=== PATIENT | female | born 1965 | race Caucasian/White ===

== ENCOUNTER 2023-08-13 07:54 | Emergency (ER) | payer OTHER, SELFPAY ==
[2023-08-13 08:05] VITALS: BP 121/87; PULSE 106; RESP 15; O2SAT 100
[2023-08-13 08:12] VITALS: BP 134/80; PULSE 101; RESP 16; TEMP 36.3; O2SAT 99
[2023-08-13 08:16] VITALS: BP 128/91; PULSE 109; RESP 18; O2SAT 96
[2023-08-13] MEDS: SODIUM CHLORIDE 0.9% IV 1,000 ML 999 ML IV CONT (08:26)
[2023-08-13 08:33] LABS: Basophils Absolute Auto 0.1 K/mm3 (0.0-0.1); Basophils Percent Auto 0.4 % (0.2-1.2); Eosinophils Absolute Auto 0.1 K/mm3 (0-0.3); Eosinophils Percent Auto 0.8 % (0-4.4); Hematocrit 48.9 % (37.0-47.0); Hemoglobin 16.6 g/dL (12.0-15.0); Immature Granulocyte Absolute 0.18 K/mm3 (0.00-0.031); Immature Granulocyte Percent A 1.3 % (0-0.5); Lymphocytes Absolute Auto 2.56 K/mm3 (0.9-3.2); Lymphocytes Percent Auto 18.7 % (18.3-44.2); Mean Corpuscular HGB Conc 33.9 g/dl (32-36); Mean Corpuscular Hemoglobin 30.3 pg (26-34); Mean Corpuscular Volume 89.2 fl (80-100); Mean Platelet Volume 9.2 fl (7.4-10.4); Monocytes Absolute Auto 0.7 K/mm3 (0.1-0.6); Monocytes Percent Auto 5.3 % (2.6-8.5); Neutrophils Percent Auto 73.5 % (45.5-73.1); Platelet Count Result 465 k/mm3 (150-375); Red Blood Count 5.48 M/mm3 (4.2-5.4); White Blood Count 13.7 K/mm3 (4.5-10.0)
[2023-08-13 08:46] LABS: Alanine Aminotransferase 35 U/L (6-35); Albumin Level 4.9 g/dL (3.5-5.1); Alkaline Phosphatase 82 U/L (38-126); Anion Gap 16 mmol/L (4-12); Aspartate Amino Transferase 30 U/L (14-36); Bilirubin,Total 1.8 mg/dL (0.2-1.3); Blood Urea Nitrogen 36 mg/dL (7-17); Calcium 9.4 mg/dL (8.4-10.2); Carbon Dioxide 18 mmol/L (22-30); Chloride 101 mmol/L (98-107); Estimated Glomerular Filt Rate > 60; Glucose 67 mg/dL (65-110); Sodium 135 mmol/L (137-145)
[2023-08-13 09:01] VITALS: BP 121/78; PULSE 93; RESP 14; TEMP 36.6; O2SAT 100
[2023-08-13 10:11] LABS: Add Urine Microscopic? NO; Appearance Urine Clear (Clear); Bilirubin Urine Negative (Negative); Blood Urine Negative (Negative); Color Urine Yellow (Yellow); Glucose Urine UA Negative (Negative); Ketones Urine 3+ mg/dL (Negative); Leukocyte Esterase Ur Negative LEU/UL (Negative); Nitrate Urine Negative (Negative); Protein Urine Negative (Negative); Urobilinogen Urine 0.2 mg/dL (<2.0)
[2023-08-13 10:30] VITALS: BP 124/68; PULSE 92; RESP 20; TEMP 36.8; O2SAT 99
--- NOTE | 2023-08-13 10:48 | ED.WEAKNESS ---
HPI - Weakness General Chief complaint: Weakness Stated complaint: SOB, i can't talk , difficulty walking Time Seen by Provider: 08/13/23 08:06 Source: patient Mode of arrival: ambulatory Limitations: no limitations History of Present Illness HPI Narrative: 58-year-old with a history of anxiety, depression ongoing neurological problem here with the complaints of generalized weakness, unable to eat unable to swallow which has been ongoing for almost 6 months to a year. She states that she had an MRI of her brain and neck and is scheduled to see a neurologist on August 29. She presently denies having any headache, chest pain or shortness of breath. No history of nausea or vomiting. MD Complaint: generalized weakness Onset (ago): month(s) (6) Duration: constant Location: generalized Migration: none Relieving factors: none Exacerbating factors: none Context: new medication Associated symptoms: denies other symptoms Related Data Allergies Allergy/AdvReac Type Severity Reaction Status Date / Time hydromorphone AdvReac Intermediate SEVERE Verified 05/25/18 12:03 VOMITING Review of Systems Review of Systems: All systems reviewed & are unremarkable except as noted in HPI and below Constitutional: Constitutional: Reports no additional constitutional complaints Eyes: Eyes: Reports no additional eye complaints ENT: Reports system reviewed and no additional complaints, except as documented Cardiovascular: Cardiovascular: Reports no additional cardiovascular complaints Respiratory: Respiratory: Reports no additional respiratory complaints Gastrointestinal: Gastrointestinal: Reports no additional gastrointestinal complaints Genitourinary: Genitourinary: Reports no additional female genitourinary complaints Musculoskeletal: Musculoskeletal: Reports as per HPI Neurologic: Reports as per HPI PMFSH Family History Family History Other Asthma Carcinoma of colon Social History Social History Smoking status: Never smoker Alcohol intake: never Exam Narrative: GENERAL: Well-appearing, well-nourished, and in no acute distress. HEAD: Normocephalic, atraumatic. EYES: PERRLA and EOMI. ENT: Nares clear, no rhinorrhea or epistaxis. Mucous membranes moist. NECK: Supple. CHEST: Clear to auscultation. No respiratory distress. HEART: Regular rate and rhythm. No murmur heard. Normal peripheral pulses. ABDOMEN: Soft, nontender, nondistended, normal active bowel sounds. EXTREMITIES: Normal range of motion. No edema. SKIN: Warm, dry, no rash. NEURO: No focal deficits. Alert and oriented x3. PSYCH: Normal mood and affect. Course Course Emergency Course: Notified patient about her lab work. Recommended her to follow with a neurologist as scheduled continue home medication. In more fluids as tolerated. Vital Signs Vital signs: Vital Signs Pulse Rate 106 H 08/13/23 08:05 Respiratory Rate 15 08/13/23 08:05 Blood Pressure 121/87 08/13/23 08:05 Pulse Oximetry 100 08/13/23 08:05 Temperature 36.6 C 08/13/23 09:01 Pulse Rate 93 08/13/23 09:01 Respiratory Rate 14 08/13/23 09:01 Blood Pressure 121/78 08/13/23 09:01 Pulse Oximetry 100 08/13/23 09:01 Oxygen Delivery Room Air 08/13/23 08:12 MDM - Weakness Lab Data 08/13/23 08:27 08/13/23 08:27 Labs: Lab Results 08/13/23 08/13/23 Range/Units 08:27 10:05 WBC 13.7 H (4.5-10.0) K/mm3 RBC 5.48 H (4.2-5.4) M/mm3 Hgb 16.6 H (12.0-15.0) g/dL Hct 48.9 H (37.0-47.0) % MCV 89.2 (80-100) fl MCH 30.3 (26-34) pg MCHC 33.9 (32-36) g/dl RDW 13.0 (11.5-14.5) % Plt Count 465 H (150-375) k/mm3 MPV 9.2 (7.4-10.4) fl Immature Gran % (Auto) 1.3 H (0-0.5) % Neut % (Auto) 73.5 H (45.5-73.1) % Lymph % (Auto) 18.7 (18.3-44.2) % Price % (Auto) 5.3 (
== END 2023-08-13 11:21 | disposition home or self-care (01) ==
PROVIDERS: Emergency Provider Family Medicine
DX: R53.1 Weakness (principal)
CPT/HCPCS: 36415; 80053; 81003; 85025; 96360; 99283; J7030

== ENCOUNTER 2024-04-16 03:29 | Emergency (ER) | payer MEDICARE, MEDICAID, SELFPAY ==
[2024-04-16] VITALS (19 sets, daily range): BP systolic 93–113; BP diastolic 59–86; PULSE 85–95; RESP 17–28; TEMP 36.3; O2SAT 90–100
[2024-04-16 03:49] LABS: Basophils Absolute Auto 0.1 K/mm3 (0.0-0.1); Basophils Percent Auto 1.3 % (0.2-1.2); Eosinophils Absolute Auto 0.1 K/mm3 (0-0.3); Eosinophils Percent Auto 0.9 % (0-4.4); Hematocrit 42.5 % (37.0-47.0); Hemoglobin 14.1 g/dL (12.0-15.0); Immature Granulocyte Absolute 0.01 K/mm3 (0.00-0.031); Immature Granulocyte Percent A 0.2 % (0-0.5); Lymphocytes Absolute Auto 2.28 K/mm3 (0.9-3.2); Lymphocytes Percent Auto 42.3 % (18.3-44.2); Mean Corpuscular HGB Conc 33.2 g/dl (32-36); Mean Corpuscular Hemoglobin 29.4 pg (26-34); Mean Corpuscular Volume 88.7 fl (80-100); Mean Platelet Volume 9.3 fl (7.4-10.4); Monocytes Absolute Auto 0.4 K/mm3 (0.1-0.6); Monocytes Percent Auto 6.7 % (2.6-8.5); Neutrophils Absolute Auto 2.6 K/mm3 (1.3-6.7); Neutrophils Percent Auto 48.6 % (45.5-73.1); Platelet Count Result 313 k/mm3 (150-375); Red Blood Count 4.79 M/mm3 (4.2-5.4); White Blood Count 5.4 K/mm3 (4.5-10.0)
[2024-04-16] MEDS: ONDANSETRON INJ 4 MG/2 ML VIAL IV PUSH (03:53)
[2024-04-16] MEDS: SODIUM CHLORIDE 0.9% IV 1,000 ML 999 ML IV CONT ×2 (03:53→05:16)
[2024-04-16 04:03] LABS: Alanine Aminotransferase 89 U/L (6-35); Alkaline Phosphatase 105 U/L (38-126); Anion Gap 11 mmol/L (4-12); Aspartate Amino Transferase 86 U/L (14-36); Bilirubin,Total 0.8 mg/dL (0.2-1.3); Blood Urea Nitrogen 21 mg/dL (7-17); Calcium 9.4 mg/dL (8.4-10.2); Carbon Dioxide 28 mmol/L (22-30); Chloride 100 mmol/L (98-107); Estimated CRCL calculation 75 ml/min; Estimated Glomerular Filt Rate > 60; Glucose 132 mg/dL (65-110); Magnesium 1.8 mg/dL (1.6-2.3); Sodium 139 mmol/L (137-145)
--- OUTSIDE RECORDS SUMMARY | 2024-04-16 04:12 | XMS_ITS | Clinical Summary ---
Author Organization [facility] Address [address] [place] [id number] Care Team Providers Care Industrial Engineering Professor Name Role Phone Yun cMcann MD Primary Care Provider [phone] Medications metFORMIN ER (GLUCOPHAGE-XR) 500 MG 24 hr tablet Take 1 tablet (500 mg total) by mouth daily. 04/07/2023 Active Active Problems Problem Noted Date Diagnosed Date Pre-diabetes 04/26/2023 Arthritis of spine 04/26/2023 DDD (degenerative disc disease), cervical 2023 Dysphagia 04/26/2023 Diverticulitis 04/26/2023 Family History Medical History Relation Comments Dementia Maternal Grandmother Relation Status Comments Maternal Grandmother Social History Tobacco Use Types Packs/Day Years Used Date Smoking Tobacco: Never Smokeless Tobacco: Never Tobacco Cessation:Counseling Given: Not Answered Alcohol Use Standard Drinks/Week Comments Not Currently 0 (1 standard drink = 0.6 oz pur e alcohol) PHQ-2 Answer Date Recorded Patient Health Questionnaire-2 Score 0 04/26/2023 Comments Unknown Sex and Gender Information Value Date Recorded Sex Assigned at Not on file Legal Sex Female 12:35 PM CHARGE LPN Gender Identity Not on file Sexual Orientation Not on file Last Filed Vital Signs Vital Sign Reading Time Taken Comments Blood Pressure 141/89 04/26/2023 8:51 AM CHARGE LPN Pulse 99 04/26/2023 8:51 AM CHARGE LPN Temperature 36.9 C (98.5 F) 04/26/2023 8:51 AM CHARGE LPN Respiratory Rate - - Oxygen Saturation 98% 04/26/2023 8:51 AM CHARGE LPN Inhaled Oxygen Concentration - - Weight 67.1 kg (148 lb) 04/26/2023 8:51 AM CHARGE LPN Height 165.1 cm (5' 5 ) 04/26/2023 8:51 AM CHARGE LPN Body Mass Index 24.63 04/26/2023 8:51 AM CHARGE LPN Plan of Treatment Health Maintenance Due Date Last Done Comments Cervical Cancer Screening Pap Smear (Age 30 to 64) Every 3 Years 1964 Colorectal Cancer Screening Colonoscopy (10 Years) 1964 Annual Physical 01/30/1967 Hepatitis C 01/30/1982 DTaP, Tdap and Td Vaccines (1 - Tdap) 01/30/1983 Cervical Cancer Screening Pap with HPV Testing (Age 30 to 64) Every 5 Years 01/30/1994 Cervical Cancer Screening with HPV 01/30/1994 Mammogram Screening 2004 Zoster Vaccines (1 of 2) 01/30/2014 COVID-19 Vaccine ( season) 2023 09/19/2021, 03/21/2021, 06/14/2020, Additional history exists Influenza Adult (#1) 2023 PHQ-2 (Physician [place]) 02/23/2024 04/26/2023 PHQ-2 (Physician [place]) 04/25/2024 04/26/2023 RSV Immunization or 60+ Years (1 - 1-dose 75+ series) 01/30/2039 Meningococcal B Vaccine Aged Out No l onger eligible based on patient's age to complete this topic Meningococcal Vaccine Aged Out No kelly janes eligible based on patient's age to complete this topic Pneumococcal Vaccine: Pediatrics (0 to 5 Years) and At-Risk Patients (6 to 64 Years) Aged Out No longer eligible based on patient's age to complete this topic RSV Immunizations Under 20 Months Aged Out No longer eligible based on patient's age to complete this topic Insurance [facility] Care Teams Industrial Engineering Professor Relationship Specialty Start Date End Date Yun Mccann MD [address] [address] PCP - General FAMILY PRACTICE 04/26/23
--- OUTSIDE RECORDS SUMMARY | 2024-04-16 04:12 | XMS_ITS ---
Author Organization [facility] Address [address] [place], [place] [id number] Care Team Providers Care Rental Car Deliverer Name Role Phone VAL LEE Primary Care Provider Unavailab Rafaela William Unavailable [phone] Gracie Davis Unavailable [phone] ALLERGIES Allergen (clinical drug ingredient) Drug/Non Drug Allergy documented on EMR Reaction Allergy Type Onset Date Status hydromorphone Dilaudid extreme vomit, nausea Drug Allergy Active REASON FOR VISIT 2 week follow up MEDICATIONS Medication SIG (Take, Route, Fr equency, Duration) Notes Start Date End Date Status metFORMIN 500 mg 1 tab(s) orally 2 times a day Active PROBLEMS Problem Type ICD Code Onset Dates Problem Status W/U Status Risk SNOMED Code Notes Problem Paresthesia (R20.2) Active confirmed 54132413 VITAL SIGNS BMI 24.46 kg/m2 05/28/2023 Blood pressure systolic 131 mm Hg 05/28/19 24 Blood pressure diastolic 78 mm Hg 024 Heart Rate 116 /min 05/28/2023 Height 65 in 05/28/2023 Weight 147 lbs 05/28/2023 Encounters Encounter Location Date Provider Diagnosis [facility] [address], [address] [place], [place] [id number] 05/28/2023 Gracie Davis Paresthesia R20.2 ; TIERA positive R76.8 and Low back pain at multiple sites M54.50 ASSESSMENTS Encounter Date Diagnosis Assessment Notes Treatment Notes Treatment Clinical Notes 05/28/2023 Paresthesia (ICD-10 - R20.2) 05/28/2023 TIERA positive (ICD-10 - R76.8) 05/28/2023 Low back pain at multiple sites (ICD-10 - M54.50) PLAN OF TREATMENT Medication Medication Name Sig Start Date Stop Date Notes metFORMIN 500 mg 1 tab(s) orally 2 times a day Progress Notes * Examination Category Sub-Category Detail Notes General Constitutional: No acute distres s HEENT: PERRLA, Neck supple, Normal sclerae and conjunctivae Abdomen: soft, no organomegal y or masses /Rectal: not done Skin: No cutaneous lesions . No subcutaneous nodules noted in the 4 extremities Neurological: No focal neurologica l findings Heme/Lymphatic: No cervical, axillar y, or inguinal adenopathy Psych: Alert, oriented x 3, Normal affect Musculoskeletal: 4/5 strength No musc le atrophy Joint Exam Shoulders No swelling. No tenderness. NROM. Elbows No swelling. No tend erness. NROM. Wrists No swelling. No tend erness. NROM. Hips No tenderness, nii l ROM, no instability or deformity Knees No swelling, no tend erness, NROM. No instability or deformity Ankles No swelling, no tend erness, NROM., No instability or deformity. All MCPs No swelling, no tend erness, no deformity unless noted below. All PIPs No swelling, no tend erness, no deformity unless noted below. All DIPs No swelling, no tend erness, no deformity unless noted below. All MTPs No swelling, no tend erness, NROM, no deformity unless noted below. History and Physical Notes * HPI (History of Present Illness) Category Sub-Category Detail Notes Rheumatology Joint pain Joint swelling dry eyes dry mouth Raynaud's/ dicoloration of fingers muscle weakness rash dysphagia Back pain back and neck pain Psoriasis Iritis, conjuctivitis, uveiitis Crohn's/ ulcerative colitis Numbness or tingling left hand, left jinny t and left leg Family History of Rheumatic Disease NSAID's color changes in fingers or toes chest pain Physical Examination Category Sub-Category Detail Notes MDHAQ Summary Function (0-10):: 5.3 Pain (0-10):: 7.5 Patient Global Assessment of Disease Activity (0 -10):: 9 RAPID3 Score (0-30):: 21.8 Physician Global Assessment of Disease Activity (0-10):: 2 Prognosis Good w/tx Erosive Damage No
--- OUTSIDE RECORDS SUMMARY | 2024-04-16 04:13 | XMS_ITS ---
Author Organization [facility] Address [address] [place], [place] [phone] Care Team Providers Care High Pressure Boiler Operator Name Role Phone ROSAVAL Primary Care Provider Unavailab Rafaela William Unavailable [phone] REASON FOR VISIT ltr of referral Encounters Encounter Location Date Provider Diagnosis [facility] [address] [place], [place] [id number] 05/31/2023 Rafaela Rodgers PLAN OF TREATMENT No Information
--- OUTSIDE RECORDS SUMMARY | 2024-04-16 04:13 | XMS_ITS | Patient Health Summary ---
Author Organization [facility] Address [address] [facility] [place] [address] Care Team Providers Care Automobile Sales Representative Name Role Phone Yun Padgett MD Primary Care Provider Note from [facility],non-owned Affiliates and Associated Physician Practices is amultiple site organization consisting of ambulatory clinics and hospital sitesin [place], [place], [place] and [place]. This disclosure is being madepursuant to the Care Everywhere program and may not contain all information available regarding this patient. Last updated 17.[facility] Social History Tobacco Use Types Packs/Day Years Used Date Smoking Tobacco: Never Assessed Sex and Gender Information Value Date Recorded Sex Assigned at Not on file Gender Identity Not on file Sexual Orientation Not on file Care Teams Automobile Sales Representative Relationship Specialty Start Date End Date Yun Padgett MD [address] [facility] [address] [place] [id number] PCP - General 10/06/17
--- OUTSIDE RECORDS SUMMARY | 2024-04-16 04:13 | XMS_ITS | Clinical Summary ---
Author Organization [facility] Address [address] [facility] [place] [address] Care Team Providers Care Sharples Machine Operator Name Role Phone Yun Padgett MD Primary Care Provider Source Comments [facility],non-owned Affiliates and Associated Physician Practices is amultiple site organization consisting of ambulatory clinics and hospital sitesin [place], [place], [place] and [place]. This disclosure is being madepursuant to the Care Everywhere program and may not contain all information available regarding this patient. Last updated 17.[email or web address] Social History Tobacco Use Types Packs/Day Years Used Date Smoking Tobacco: Never Assessed Sex and Gender Information Value Date Recorded Sex Assigned at Not on file Gender Identity Not on file Sexual Orientation Not on file Plan of Treatment Upcoming Encounters Date Type Department Care Team (Late st Contact Info) Description 08/08/2024 2:00 PM CDT Office Visit [facility] - Neurology [address] [place] [phone] Theodora Wiggins MD [address] [place] [address] [place] [address] Health Maintenance Due Date Last Done Comments COLOGUARD (AGES 45-75) - COL ON CA SCREENING 1964 COLON MONITORING 1964 COLONOSCOPY - COLON CA SCREENING 1964 CT COLONOGRAPHY - COLON CA SCREENING 1964 Colorectal Cancer Screening 1964 FIT - COLON CA SCREENING 1964 FLEX SIG - COLON CA SCREENING 1964 LIPID TESTING 1964 MAMMOGRAM 1964 PAP SMEAR 1964 HIV SCREENING 01/30/1979 HEPATITIS C SCREENING 01/26/1982 DTAP/TDAP/TD VACCINES (1 - Tdap) 01/30/1983 PNEUMOCOCCAL VACCINE 50+ (1 of 1 - PCV) 01/30/2014 ZOSTER VACCINE (1 of 2) 01/30/2014 COVID-19 VACCINE (1 - 2023-2 5 season) 2023 INFLUENZA VACCINE (#1) 2023 Respiratory Syncytial Virus (RSV) Vaccine Pt: or over 60 yrs (1 - Risk 60-74 years 1-dose series) 2024 DEPRESSION SCREENING 02/23/2024 HEPATITIS B VACCINE Aged Out No longe r eligible based on patient's age to complete this topic HIB VACCINE Aged Out No longer eligi ble based on patient's age to complete this topic HPV VACCINE Aged Out No longer eligi ble based on patient's age to complete this topic MENINGOCOCCAL (Group B) VACCINE Aged Out No longer eligible based on patient's age to complete this topic MENINGOCOCCAL VACCINE Aged Out No kelly janes eligible based on patient's age to complete this topic Care Teams Sharples Machine Operator Relationship Specialty Start Date End Date Yun Padgett MD [address] [place] [address] [address] [place] [address] [facility] - General 10/06/17
--- OUTSIDE RECORDS SUMMARY | 2024-04-16 04:13 | XMS_ITS | Referral Summary ---
Author Organization [facility] Address [address] [facility] [place] [address] Care Team Providers Care Buyer Assistant Name Role Phone Yun Padgett MD Primary Care Provider [phone] Source Comments [facility],non-owned Affiliates and Associated Physician Practices is amultiple site organization consisting of ambulatory clinics and hospital sitesin [place], [place], [place] and [place]. This disclosure is being madepursuant to the Care Everywhere program and may not contain all information available regarding this patient. Last updated 17.[facility] [employer] Social History Tobacco Use Types Packs/Day Years Used Date Smoking Tobacco: Never Assessed Sex and Gender Information Value Date Recorded Sex Assigned at Not on file Gender Identity Not on file Sexual Orientation Not on file Plan of Treatment Upcoming Encounters Date Type Department Care Team (Late st Contact Info) Description 08/08/2024 2:00 PM CDT Office Visit [facility] - Neurology [address] [place] [address], [place] [address] Theodora Wiggins MD [address] [place] [address] [place] [address] Care Teams Buyer Assistant Relationship Specialty Start Date End Date Yun Padgett MD [facility] [place] [address] PCP - General 10/06/17
--- OUTSIDE RECORDS SUMMARY | 2024-04-16 04:13 | XMS_ITS | Data Portability ---
Author Organization [place] [facility] [employer], Main Office Address [address] [place] [address] Care Team Providers Care Tower Director Name Role Phone YUN SIMPSON Primary Care Provider Assessment No assessment recorded. Plan of Treatment Reminders Order Date Submit Date Provider Last Modified By Organization Details Last Modified Time Details Appointments Teleph onic Visit 30 2024 09:00A M Leena wilkins MD Not available Not available Not available Lab glycoh emoglo bin, total, blood 2023 024 [email or web address] [facility] (Lab), [address] [place], [address], 08/17/2023 08:02:36 Referral home health referr al [address], [address] [place], [address], 04/12/2024 12:12:50 physic al therap ist referr al [address] Physical, Occupational & Speech Medicine [facility] Rehab, [address] [place], [address], 04/12/2024 12:12:50 hospic e & pallia tive medici ne referr al 2024 025 [facility], [address], [address], [place], [address], 04/12/2024 12:10:19 pain manage ment referr al - Jagruti g lumbar discs . Please consid er epidur als . Please call patien t to schedu le an appoin tment. Thank you 2023 024 [email or web address] [facility], [address], [place], [address], 09/07/2023 13:50:52 podiat rist referr al - Please call patien t to schedu le an appoin tment. Thank you. 2023 024 [email or web address] Desire Reilly DPM, [address], [place], [address], 09/07/2023 13:50:25 neurol ogist referr al - Periph eral neurop athy , cannot speak right and is fallin g freque ntly . Please eval and treat. Please call patien t to schedu le an appoin tment. Thank you 2023 024 [email or web address] [facility] Department Of Neurosurgery, [address], [address], [place], [address], 09/01/2023 11:48:10 physic al therap ist referr al - Eugeniaii ng a lot , perirp heral neurop athy *Pleas e call pt to schedu le* No referr al requir ed for PT per phone call to [facility]. Ref # [id number]. [place] Fac[place] which [place] Lawson brown, lucien Reveles ter is OON. Please contac t Renzo gilliam with any questi ons. . Thanks ! 2023 024 [employer], [address], [place], [address], 08/09/2023 16:28:27 otolar yngolo gist referr al 2023 024 ftrotMace MD, [address], [place], [address], 04/05/2023 12:12:33 Procedures None record ed. Surgeries None record ed. Imaging MRI, lumbar spine, w/o contra st - *Pleas e call pt to john hudson* Auth update d in system to [facility] . Same auth # and time frame. 2023 024 [facility], [address], [place], [address], 08/09/2023 17:15:59 [place], modifi ed barium swallo w study 2023 024 [facility] (One Call Scheduling), [address] [place], [address], 03/17/2023 16:10:41 Medication Orders duloxe tomas 30 mg capsul e,angie yed releas e sprink le 2024 025 [facility], [address], [place], [id number], 04/12/2024 12:12:55 ezetim jose m 10 mg tablet 2023 024 [email or web address] [facility], [address], [place], [id number], 04/12/2024 11:16:58 cholec alcife rol (vitam in D3) 25 mcg (1,000 unit) capsul e 2023 024 [address] [facility], [address], [place], [id number], 04/12/2024 11:17:08 predni sone 20 mg tablet 2023 024 [facility], [address], [place], [id number], 08/10/2023 09:11:33 pregab clarita 50 mg capsul e 2023 024 [facility] #13552, [address], [place], [id number], 08/10/2023 09:11:52 pregab clarita 150 mg capsul e 2023 024 [facility] #55401, [address], [place], [id number], 08/10/2023 09:11:46 naprox en 500 mg tablet 2023 024 [facility], [address], [place], [id number], 04/12/2024 11:17:13 Patient TargetsNo targets recorded. Patient Instructions Encounter Date Encounter Id Patient Instructions Last Modified By Organization Details Last Modified Time 03/17/2023 [id number] PT WITH DYSPHAGI A TO LIQUIDS . DDX : ACHALASIA . RECOMMEND A MBS /ENT EVALUATION . SHE MIGHT BENEFIT FROM EGD /DILATION . EVALUATION OF HER ANATOMY IS PRUDENT AT THIS TIME . [email or web address] Not available 03/17/2023 13:01:59 07/29/2023 [id number] sample AirSupra given [email or web address] Not available 07/29/2023 13:09:54 08/10/2023 [id number] reviewed MRI : bulging discs : sending to pain management for epidurals . Had my nurse call , she could not get an appointment any sooner than Carrie could trista Not available 08/10/2023 16:06:27 Reason for Referral Medical Consultant Referral fo r Disorder of esophagus Referring Physician: Geni Osborne, Gastroenterology, Encounter Date: 03/17/2023 Neurologist Referral for Miki ropathy Peripheral neuropathy , cannot speak right and is falling frequently . Please eval and treat. Please call patient to schedule an appointment. Thank you Referring Physician: Edward Anmol, Family Medicine, Encounter Date: 07/29/2023 Physical Therapist Referral for Neuropathy Falliing a lot , perirpheral neuropathy *Please call pt to schedule* No referral required for PT per phone call to insurance. Ref # [id number]. Bill [place] Facility, which is [place] [facility], lucien Townsend is OON. Please contact Renzo Lombardi with any questions. [phone]. Thanks! Referring Physician: Family Chi Medicine, Encounter Date: 07/29/2023 Coater Slate Referral for Neur opathy Please call patient to schedule an appointment. Thank you. Referring Physician: Family Chi Medicine, Encounter Date: 08/10/2023 Pain Management Referral for Prolapsed lumbar intervertebral disc Bulging lumbar discs . Please consider epidurals . Please call patient to schedule an appointment. Thank you Referring Physician: Family Chi Medicine, Encounter Date: 08/10/2023 Hospice & Palliative Medicin e Referral for Full care by hospice Referring Physician: Leena Hoffman, Internal Medicine, Encounter Date: 04/12/2024 Home Health Referral for Dep endence on wheel chair Referring Physician: Leena Hoffman Internal Medicine, Encounter Date: 04/12/2024 Physical Therapist Referral for Dependence on wheel chair Referring Physician: Leena Hoffman Internal Medicine, Encounter Date: 04/12/2024 Results Created Date Observation Date Name Description Value Unit Range Abnormal Flag Note LastModifiedBy Organization Detail LastModifiedTime 04/30/19 24 04/30/2023 nerve condu ction study /EMG (PROC ) No observ ation record ed. [email or web address] [facility] 3 [facility] [address], [place], [address], 05/03/2023 11:04:08 05/07/19 24 05/07/2023 XR, cervi josé miguel spine , 4 or 5 view No observ ation record ed. [email or web address] [facility] [address] [place], [address], 05/07/2023 11:37:10 05/07/19 24 05/07/2023 XR, sacro iliac joint (s) No observ ation record ed. [email or web address] [facility] [address] [place], [address], 05/07/2023 11:38:02 05/07/19 24 05/07/2023 XR, cervi josé miguel spine , 4 or 5 view No observ ation record ed. [address] [place], [address], 05/07/2023 11:36:30 05/07/19 24 05/07/2023 MRI, brain + brain stem, w/o contr ast No observ ation record ed. [email or web address] [facility]: Pulmonology 1 [facility], [place], [address], 05/10/2023 10:14:21 05/19/19 24 05/19/2023 [place], modif ied neil presley study [facility] [address] [place] [address] Patien t Name: CARRIE ROMERO Access ion #: [id number] Sex: F : 1964 3 Locati on: RAD Attend ing Physic rell: JUSTINE MARTINEZ Orderi Physic rell: JUSTINE MARTINEZ Exam Date: 024 11:05 AM Exam Name: XR MOD BARIUM SWALLO W Admitt ing Diagno sis(es ): RADIOL OGY REPORT - FINAL EXAM: XR MOD BARIUM SWALLO W HISTOR Y: DYSPHA DEDE 58-yea r-old female with feelin g of food gettin g stuck in the throat . COMPAR MARIELA: None availa ble. TECHNI QUE: With help from speech pathol ogy, multip le consis tencie s of liquid barium and solid food mixed with barium were admini stered orally . Swallo wing was evalua promise fluoro scopic ally. Motion evalua tion was perfor med using cine/v ideo record ing. Fluoro time: 0.4 minute s; DAP: 0.135 Gy.cm2 . Three cine runs were perfor med. FINDIN GS: Page [facility] 2 [facility] Name: CARRIE ROMERO Access ion #: [id number] Sex: F : 1964 3 Exam Date: 11:05 AM Exam Name: XR MOD BARIUM SWALLO W Admitt ing Diagno sis(es ): No laryng eal penetr ation or sabi aspira tion were identi fied with the swallo wing of liquid , semi-s olid, or solid food. IMPRES JORDAN: 1. No laryng eal penetr ation or aspira tion are identi fied here. 2. For furthe r detail s, please see report from speech pathol ogy. Create d and electr onical ly signed by: Curtis kelley MD Signed Date: 12:14 PM (CT) Dictat ed by: Curtis kelley MD DD: 12:14 PM (CT) DT: 12:14 PM (CT) Page 2 of [address] (Imaging) [address] [place], [address], 05/20/2023 09:07:26 05/19/19 24 05/19/2023 neil presley study No observ ation record ed. [email or web address] [place], [address], 05/19/2023 14:05:55 05/19/19 24 05/19/2023 [place], modif ied neil presley study No observ ation record ed. [address] (One Call Scheduling) [address] [place], [address], 05/20/2023 09:07:42 05/19/19 24 05/19/2023 [place], modif ied neil [facility] study No observ ation record ed. [address] (One Call Scheduling) [address] [place], [address], 05/20/2023 09:04:08 05/25/19 24 05/25/2023 [place], modif ied neil [facility] study No observ ation record ed. [address] (One Call Scheduling) [address] [place], [address], 05/25/2023 16:25:32 06/02/19 24 06/02/2023 XR, esoph agram [facility] [address] [place] [address] [phone] Patieusebia t Name: CARRIE ROMERO Access ion #: [id number] Sex: F : 1964 4 Locati on: RAD Attend ing Physic rell: JUSTINE MARTINEZ Orderi Physic rell: JUSTINE MARTINEZ Exam Date: 024 9:57 AM Exam Name: XR BARIUM SWALLO W Admitt ing Diagno sis(es ): RADIOL OGY REPORT - FINAL EXAM: XR BARIUM SWALLO W HISTOR Y: dyspha dede 58-yea r-old female with feelin g of liquid s gettin g stuck in the throat and upper esopha floridalma. The patien t has a histor y of surger y to correc t esopha geal strict ure, possib ly via upper endosc opy. COMPAR MARIELA: Modifi ed barium swallo w dated 2023. TECHNI QUE: Fluoro scopic examin ation of the esopha floridalma was perfor med using thin liquid barium , with the patien t in uprigh t positi on on the fluoro table. The esopha floridalma was evalua promise fluoro scopic ally. Multip le fluoro scopic spot films were obtain ed. Fluoro time: 0.9 minute s; DAP: 1.446 Gy.cm2 ; 42 fluoro scopic spot views were perfor med. Page 1 of 2 [facility] [place] Name: CARRIE ROMERO Access ion #: [id number] Sex: F : 1964 4 Exam Date: 9:57 AM Exam Name: XR BARIUM SWALLO W Admitt ing Diagno sis(es ): FINDIN GS: No esopha geal divert icula, strict ures, ulcera tions, varice s, or intral uminal fillin g defect s identi fied. Multip le episod es of revers e perist alsis were identi fied in the mid to distal esopha floridalma. The majori ty of the thin liquid barium flowed readil y into the stomac h. No hiatal hernia . IMPRES JORDAN: 1. Multip le episod es of revers e perist alsis in the mid to distal esopha floridalma. 2. Otherw ise unrema rkable single -contr ast esopha gram. Create d and electr onical ly signed by: Curtis kelley MD Signed Date: 2:45 PM (CT) Dictat ed by: Curtis kelley MD DD: 2:45 PM (CT) DT: 2:45 PM (CT) Page 2 of 2 [facility] (Imaging) [address] [place], [address], 06/04/2023 10:39:51 06/02/19 24 06/02/2023 neil presley study No observ ation record ed. [facility] [address] [place], [address], 06/04/2023 10:39:52 06/03/19 24 06/03/2023 neil presley study No observ ation record ed. [facility] (One Call Scheduling) [address] [place], [address], 06/03/2023 12:05:51 08/09/19 24 08/06/2023 MRI, lumba r spine , w/o contr ast No observ ation record ed. [email or web address] [facility] [address], [place], [address], 01/17/2024 10:51:05 Result Notes Documentation Provider Name and Address Organization Details Recorded Time Mri, Brain + Brain Stem, W/o Contrast : ESTHER Diaz RN null, [place] - [facility] [employer] 05/10/2023 10:14:21 Problems Name Problem SNOMED Code Status Onset Date Resolution Date Notes Provider Name and Address Organization Details Recorded Time Irritable bowel syndrome 12334898 Active 2016 Not Available [facility] 3 08:09:53 Insomnia 543183757 Active 2016 Not Available [facility] 3 08:09:53 Asthma 778012028 Active 2016 Not Available [facility] 3 08:09:53 Diverticuliti s 402717966 Active 2021 Not Available [facility] 3 08:09:53 Depressive disorder 11459648 Active 2016 Not Available [facility] 3 08:09:54 Adhesive capsulitis of shoulder 917994568 Active Not Available [facility] 3 08:09:54 Anxiety 36635408 Active 2016 Not Available [employer] 3 08:09:54 Hernia of abdominal cavity 39233908 Active 2021 Not Available [employer] 3 08:09:54 Cervical radiculopathy 92282177 Active 2021 Not Available [employer] 3 08:09:54 Acid reflux 292749370 Active 2016 Not Available [employer] 3 08:09:54 Sleep apnea 42612451 Active 2016 Not Available [employer] 3 08:09:54 Impaired glucose tolerance 0940846 Active 2022 Yun Padgett MD [address], [address], [place], [address] , [facility] 3 11:04:06 Left lower quadrant pain 484725142 Active 2022 Yun Padgett MD [address], [address], [place], [address] , [facility] 3 11:04:16 Type 2 diabetes mellitus without complication 567633923 Active 2022 Yun Padgett MD [address], [address], [place], [address] , [facility] 3 12:20:35 Neuropathy 066166560 Active 2022 Yun Padgett MD [address], [place], [address] , [facility] 3 12:21:41 Disorder of esophagus 16897299 Active 2023 TADEO Campbell [address], [place], [address] , [facility] 4 13:05:39 Arthritis of spine 182767327 Active 2023 Maryann Matson RN null, [facility] 4 14:52:05 Rheumatoid arthritis 71907766 Active 2023 Maryann Matson RN null, [place] [facility] 4 14:52:13 Dysphagia 41974109 Active 2023 Justine Woods MD [address], [address], [place], [address] , [facility] 4 13:00:35 Paresthesia of lower extremity 349584282 Active 2023 Maryann Matson RN null, [place] [facility] 4 16:10:47 Reversed peristalsis 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 Active 2023 BETTY Cleaning, [place] [facility] 4 11:22:30 Barium swallow abnormal 868155464 Active 2023 BETTY Cleaning null, [place] [facility] 4 11:24:47 Pain on movement of lumbar spine 559958558 Active 2023 TADEO Campbell [address], [address], [place], [address] , [facility] 4 13:08:39 Vitamin D below reference range 971715927 Active 2023 TADEO Campbell [address], [address], [place], [address] , [facility] 4 09:37:23 Hyperlipidemi a 71121618 Active 2023 TADEO Campbell [address], [address], [place], [address] , [facility] 4 09:38:32 Prolapsed lumbar intervertebra l disc 516738329 Active 2023 TADEO Campbell [address], [place], [address] , [facility] 4 09:40:36 Low back pain 058257854 Active 2024 Leena blake MD [address], [address], [place], [address] , [facility] [facility] 5 11:07:15 Amyotrophic lateral sclerosis 66472515 Active 2024 Leena blake MD [address], [address], [place], [address] , [facility] [facility] 5 14:01:50 Problem Notes None recorded. Procedures Surgical History Date Name Laterality Status Provider Name and Address Organization Details Recorded Time Orthopedic Surgery completed SALO Ordonez [facility] 04/12/2024 11:31:14 Imaging Results Imaging Date Name Status LastModified by [facility] Details LastModified Time 04/30/2023 nerve conduction study/EMG (PROC) completed [email or web address] [facility] 3 [facility] [address] [facility], [place], [address], 05/03/2023 11:04:08 05/07/2023 XR, cervical spine, 4 or 5 view completed [address] [place], [address], 05/07/2023 11:37:10 05/07/2023 XR, sacroiliac joint(s) completed [address] [place], [address], 05/07/2023 11:38:02 05/07/2023 XR, cervical spine, 4 or 5 view completed [address] [place], [address], 05/07/2023 11:36:30 05/07/2023 MRI, brain + brain stem, w/o contrast completed [email or web address]: Pulmonology [address] [place], [address], 05/10/2023 10:14:21 05/19/2023 [place], modified barium swallow study completed [address] (Imaging) [address] [place], [address], 05/20/2023 09:07:26 05/19/2023 barium swallow study completed [address] [place], [address], 05/19/2023 14:05:55 05/19/2023 [place], modified barium swallow study completed [address] (One Call Scheduling) [address] [place], [address], 05/20/2023 09:07:42 05/19/2023 [place], modified barium swallow study completed [address] (One Call Scheduling) [address] [place], [address], 05/20/2023 09:04:08 05/25/2023 [place], modified barium swallow study completed [address] (One Call Scheduling) [address] [place], [address], 05/25/2023 16:25:32 06/02/2023 XR, esophagram completed [facility] (Imaging) [address] [place], [address], 06/04/2023 10:39:51 06/02/2023 barium swallow study completed [facility] [address] [place], [address], 06/04/2023 10:39:52 06/03/2023 barium swallow study completed [facility] (One Call Scheduling) [address] [place], [address], 06/03/2023 12:05:51 08/06/2023 MRI, lumbar spine, w/o contrast completed [address]-Open Mri [address], [place], [address], 01/17/2024 10:51:05 Procedure Notes None recorded. Medical Equipment None Reported. Allergies Allergen ID Allergen Name Allergen Category Reaction Reaction Severity Criticality Documentation Date Start Date Code Code System Note Provider Name and Address Organization Details Recorded Time Dilaudid medicatio n vomiting moderate Not available 04/22/2022 74869 3 RxNorm Not Available [facility] 08:14:12 Medications Name Sig Start Date Stop Date Status Note LastModified by Organization Details LastModified Time cyclobenzap rine 10 mg tablet TAKE 1 TABLET 3 TIMES A DAY BY ORAL ROUTE NEEDED. 04/24 completed Not Available Not Available Not Available buspirone 5 mg tablet Take 1 tablet twice a day by oral route. active Not Available Not Available No t Available trazodone 50 mg tablet Take 1 tablet every day by oral route. active Not Available Not Available No t Available ibuprofen 800 mg tablet TAKE 1 TABLET 3 TIMES A DAY BY ORAL ROUTE. 03/09 completed Not Available Not Available Not Available alprazolam 1 mg tablet Take 1 tablet 3 times a day by oral route as needed. active Not Available Not Available No t Available hydrocodone 5 mg-acetamin ophen 325 mg tablet TAKE 1 OR 2 TABLETS BY MOUTH EVERY 6 HOURS NEEDED FOR PAIN 04/24 completed Not Available Not Available Not Available prednisone 20 mg tablet Take 2 tabs PO twice daily for 2 days; 1 tab PO twice daily for 5 days; 1/2 tab PO twice daily for 2 days; 1/2 tab PO once for 1 day. TAKE 2ND DOSE EVERYDAY AT NOON-10 DAY COURSE 08/09 completed Not Available Not Available Not Available metronidazo le 500 mg tablet TAKE 1 TABLET BY MOUTH EVERY 12 HOURS FOR 10 DAYS 11/04 completed Not Available Not Available Not Available ciprofloxac in 500 mg tablet TAKE 1 TABLET BY MOUTH EVERY 12 HOURS 11/04 completed Not Available Not Available Not Available tramadol 50 mg tablet Take 1-2 TABLET EVERY 6 HOURS by oral route. active Not Available Not Available No t Available alprazolam 0.5 mg tablet take 1 prior to procedure . may use up to 3 a day prn 08/28 completed Not Available Not Available Not Available prednisolon e acetate 1 % eye drops,suspe nsion SHAKE LQ AND INT 1 GTT IN OD BID UTD 08/28 completed Not Available Not Available Not Available tamsulosin 0.4 mg capsule TK 1 C PO QD 11/05 completed Not Available Not Available Not Available dicyclomine 20 mg tablet 05/31 completed Not Available Not Available Not Available ranitidine 150 mg tablet TAKE 1 TABLET BY MOUTH TWICE DAILY 05/31 completed Not Available Not Available Not Available gabapentin 300 mg capsule SEE ATTACHMEN T 07/28 completed Not Available Not Available Not Available omeprazole 20 mg capsule,del ayed release TK 1 C PO QD active Not Available Not Available No t Available diclofenac sodium 75 mg tablet,angie yed release TK 1 T PO BID WITH FOOD 02/23 completed Not Available Not Available Not Available gabapentin 100 mg capsule TAKE 1 CAPSULE BY MOUTH THREE TIMES A DAY 03/09 completed Not Available Not Available Not Available ergocalcife rol (vitamin D2) 1,250 mcg (50,000 unit) capsule TK 1 C PO Q WK 08/28 completed Not Available Not Available Not Available ibuprofen 600 mg tablet TK 1 T PO Q 6 H PRN . TK WITH FOOD 11/05 completed Not Available Not Available Not Available methylpredn isolone 4 mg tablets in a dose pack TAKE 6 TABLETS ON DAY 1 DIRECTED ON PACKAGE AND DECREASE BY 1 TAB EACH DAY FOR A TOTAL OF 6 DAYS 04/24 completed Not Available Not Available Not Available ondansetron 4 mg disintegrat ing tablet DIS ONE T ON TONGUE Q 6 H 02/23 completed Not Available Not Available Not Available fluoxetine 20 mg capsule TAKE 3 CAPSULE BY MOUTH EVERY DAY active Not Available Not Available No t Available metformin ER 500 mg tablet,exte nded release 24 hr TAKE 1 TABLET BY MOUTH EVERY DAY 04/12 completed Not Available Not Available Not Available naproxen 500 mg tablet TAKE 1 TABLET BY MOUTH TWICE DAILY WITH MEALS 04/12 completed Not Available Not Available Not Available amoxicillin 875 mg-potassiu m clavulanate 125 mg tablet TK 1 T PO Q 12 H 02/23 completed Not Available Not Available Not Available cholecalcif devin (vitamin D3) 25 mcg (1,000 unit) capsule TAKE 1 CAPSULE BY MOUTH DAILY 04/12 completed Not Available Not Available Not Available ezetimibe 10 mg tablet TAKE 1 TABLET BY MOUTH EVERY DAY IN THE MORNING 04/12 completed Not Available Not Available Not Available Prilosec OTC 20 mg tablet,angie yed release Take 1 tablet by oral route. 04/30 completed Not Available Not Available Not Available pregabalin 50 mg capsule 1 cap po at bedtime for 7 days, 1 tab twice daily for 7 days , 1 tab 3 times daily for 7 days . 08/09 completed Not Available Not Available Not Available pregabalin 150 mg capsule Take 1 capsule twice a day by oral route. 08/09 completed Not Available Not Available Not Available ProAir HFA 90 mcg/actuati on aerosol inhaler INL 2 PFS PO Q 4 H 02/23 completed Not Available Not Available Not Available Dulera 200 mcg-5 mcg/actuati on HFA aerosol inhaler INL 2 PFS PO BID 08/28 completed Not Available Not Available Not Available duloxetine 30 mg capsule,del ayed release sprinkle Take 1 capsule every day by oral route for 90 days. 2024 active Not Available Not Available Not Avai lable Vitals Date Recorded Body height Body mass index (BMI) Body weight Heart rate Oxygen saturation Oxygen saturation in Arterial blood by Pulse oximetry Systolic blood pressure Diastolic blood pressure Provider Name and Address Organization Details Last Updated DateTime 4 165.1 cm 26.8 kg/m2 57787.3 7 g 110 /min 99 % 99 % 122 mm[Hg] 80 mm[Hg] SALO Winslow [facility] [employer] [facility] 4 12:31:18 Date Recorded Body height Body mass index (BMI) Body weight Body temperature Provider Name and Address Organization Details Last Updated DateTime 04/19/2023 165.1 cm 25.4 kg/m2 25072.48 g 97.8 [degF] Lashawn De La Rosa RN [facility] [employer] [facility] 04/19/2023 12:34:14 Date Recorded Body height Body mass index (BMI) Body weight Body temperature Heart rate Oxygen saturation Oxygen saturation in Arterial blood by Pulse oximetry Respiratory rate Systolic blood pressure Diastolic blood pressure Provider Name and Address Organization Details Last Updated DateTime 4 165.1 cm 22.8 kg/m2 98020.1 5 g 98.1 [degF] 104 /min 99 % 99 % 16 /min 112 mm[Hg] 80 mm[Hg] Angle Holt RN [facility] [employer] [facility] 4 12:53:11 Date Recorded Body height Body mass index (BMI) Body weight Body temperature Respiratory rate Heart rate Systolic blood pressure Diastolic blood pressure Provider Name and Address Organization Details Last Updated DateTime 4 165.1 cm 22.3 kg/m2 06165.3 8 g 97.5 [degF] 16 /min 98 /min 104 mm[Hg] 70 mm[Hg] Angle Holt RN [facility] [employer] [facility] 4 09:15:05 Date Recorded Body height Body mass index (BMI) Body weight Body temperature Heart rate Systolic blood pressure Diastolic blood pressure Provider Name and Address Organization Details Last Updated DateTime 5 165.1 cm 16 kg/m2 26934.8 7 g 98.3 [degF] 78 /min 108 mm[Hg] 76 mm[Hg] SALO Ordonez [email or web address] 11:33:46 Social History Question Answer Notes LastModified by Organization Details LastModified Time Tobacco Smoking Status Never Smoker Lashawn De La Rosa RN [facility], [employer] 04/19/2023 12:32:44 Do You Have An Advance Directive? No Information not available 04/12/2024 What Is Your Level Of Alcohol Consumption? None Information not available 04/12/2024 What Is Your Level Of Caffeine Consumption? Moderate Information not available 04/12/2024 In The 14 Days Before Symptom Onset, Have You Had Close Contact With A Laboratory-confi rmed COVID-19 While That Case Was Ill? No Information not available 04/12/2024 In The 14 Days Before Symptom Onset, Have You Had Close Contact With A Person Who Is Under Investigation For COVID-19 While That Person Was Ill? No Information not available 04/12/2024 Are You Currently Employed? No Information not available 04/12/2024 What Type Of Diet Are You Following? SPECIFIC Needs Mostly Liquids Information not available 04/12/2024 What Is The Highest Grade Or Level Of School You Have Completed Or The Highest Degree You Have Received? [id number] Information not available 04/12/2024 What Is The Fluoride Status Of Your Home? Unknown Information not available 04/12/2024 Are There Any Guns Present In Your Home? No Information not available 04/12/2024 Where Do You Live? SingleLevelHouse Information not available 04/12/2024 Do You Have A Medical Power Of Oil Separator? No Information not available 04/12/2024 What Was The Date Of Your Most Recent Tobacco Screening? 04/12/2024 Information not available 04/12/2024 Do You Have Any Pets? No Information not available 04/12/2024 What Is Your Relationship Status? Single Information not available 04/12/2024 Do You Use Your Seat Belt Or Car Seat Routinely? Yes Information not available 04/12/2024 Do You Have Smoke And Carbon Monoxide Detectors In Your Home? Yes Information not available 04/12/2024 Are You Passively Exposed To Smoke? No Information not available 04/12/2024 Are There Any Smokers In Your House? No Information not available 04/12/2024 Do You Feel Stressed (tense, Restless, Nervous, Or Anxious, Or Unable To Sleep At Night)? [id number] Information not available 04/12/2024 Do You Use Any Illicit Or Recreational Drugs? No Information not available 04/12/2024 Has Tobacco Cessation Counseling Been Provided? No N/a Information not available 04/12/2024 Have You Recently Traveled Abroad? No Information not available 04/12/2024 Do You Or Have You Ever Used Any Other Forms Of Tobacco Or Nicotine? No Information not available 04/12/2024 Sex: Unknown Functional Status Question Answer Note LastModified by Organization D etails LastModified Time What is your exercise level? None Information not available 04/12/2024 Mental Status None recorded. Family History Relationship Description Onset Age of this Age Resolved Age Notes LastModified by Organization Details LastModified Time Father Abdominal aortic aneurysm Not available 2024 11:19:16 Father Malignant neoplastic disease Not available 2024 11:19:32 Father Headache Not availabl e 04/12/2024 11:19:56 Father Anxiety Not available 04/12/2024 11:20:26 Mother Depressive disorder Not available 2024 11:20:07 Mother Anxiety Not available 04/12/2024 11:20:26 Mother Asthma Not available 04/12/2024 11:20:35 Mother Chronic kidney disease Not available 2024 11:20:44 Mother Diverticulit is Not available 2024 11:20:54 Mother Degeneration of intervertebr al disc Not available 2024 11:21:05 Mother Disorder of macula of retina Not available 2024 11:21:17 Mother Diabetes mellitus Not available 2024 11:21:27 Mother Migraine Not availabl e 04/12/2024 11:21:37 Sister Asthma Not available 04/12/2024 11:21:48 Sister Migraine Not availabl e 04/12/2024 11:21:57 Sister Chronic kidney disease Not available 2024 11:22:04 Sister Migraine Not availabl e 04/12/2024 11:22:21 Sister Intracranial aneurysm Not available 2024 11:22:58 Notes:NO ENT Medical History Condition Response DIABETES, TYPE Y Gynecological HistoryNo gynecological history recorded. Obstetrics History GPAL:G 0 P 0 0 0 0 Immunizations Vaccine Type Date Status Note Provider Nam e and Address Organization Details Recorded Time COVID-19, mRNA, LNP-S, PF, 30 mcg/0.3 mL dose 05/24/2020 completed SALO Ordonez, [facility] 04/12/2024 11:18:00 COVID-19, mRNA, LNP-S, PF, 30 mcg/0.3 mL dose 06/14/2020 completed SALO Ordonez null, [facility] 04/12/2024 11:18:00 COVID-19, mRNA, LNP-S, PF, 30 mcg/0.3 mL dose, yelena-sucrose 03/21/2021 SALO Nathan, [facility] 04/12/2024 11:18:00 COVID-19, mRNA, LNP-S, PF, 30 mcg/0.3 mL dose, yelena-sucrose 09/19/2021 completed SALO Ordonez, [facility] 04/12/2024 11:18:00 Past Encounters Encounter ID Performer Location Encounter Start Date Encounter Closed Date Diagnosis/Indication Diagnosis SNOMED-CT Code Diagnosis ICD10 Code Diagnosis Note [id number] [facility] Lupe bailon [address] [place] [address] 09/23/2021 00:00:00 09/23/2021 14:10:06 [id number] Yun Padgett MD [facility] Lupe bailon [facility] [place] [address] 04/24/2022 10:49:50 04/24/2022 11:18:17 Impaired glucose tolerance 1417040 R73.03 A1C is 5.8% Gave info on prediabete s. Will start metformin and recheck A1C in 3-6 months Left lower quadrant pain 884814639 R10.32 If sxs get worse needs to go to the ER [id number] Yun Padgett MD [facility] Lupe bailon [facility] [place] [place] [address] 11/04/2022 12:06:04 11/04/2022 12:36:49 Type 2 diabetes mellitus without complication 089656379 E11.9 A1C is 5.7% continue metformin Neuropathy 340111509 G62 .9 If no improvemen t may need NCS or increase in gabapentin . [id number] TADEO Campbell [facility] Lupe bailon [facility] [place] [address] 03/09/2023 12:41:12 03/09/2023 13:58:51 Type 2 diabetes mellitus without complication 775316412 E11.9 Cervical radiculopathy 53404989 M54.12 Neuropathy 400645753 G62 .9 Disorder of esophagus 37 170318 K22.9 Acid reflux 554395936 K2 1.9 Anxiety 86637988 F41.9 Asthma 964454892 J45.90 9 Depressive disorder 3548 9007 F32.A Insomnia 182942213 G47.0 0 Irritable bowel syndrome 63109926 K58.9 Sleep apnea 79696288 G47 .30 [id number] Geni Osborne MD [facility] General Surgery [address] [place] [address] 03/17/2023 12:30:49 03/17/2023 12:51:14 Disorder of esophagus 69700660 K22.9 [id number] Justine Woods MD [facility] ENT Antonieta Churchill [address] [place] [address] 04/19/2023 11:47:01 04/19/2023 15:56:53 Dysphagia 56828751 R13.10 [id number] TADEO Campbell [address] [place] [address] 07/29/2023 12:44:15 07/29/2023 14:36:53 Cervical radiculopathy 82014245 M54.12 Neuropathy 901249259 G62 .9 Pain on mo vement of lumbar spine 588224007 M54.51 Adhesive c apsulitis of shoulder 043595986 M75.00 Asthma 642271490 J45.90 9 Dysphagia 65113439 R13.1 0 Hyperlipidemia 36149920 E78.5 Insomnia 231111641 G47.0 0 Irritable bowel syndrome 12325507 K58.9 Prolapsed lumbar intervertebral disc 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 M51.26 Rheumatoid arthritis 698 50855 M06.9 Sleep apnea 60843480 G47 .30 [id number] TADEO Campbell [facility] [place] [address] 08/10/2023 09:06:54 08/10/2023 09:46:10 Adhesive capsulitis of shoulder 424630242 M75.00 Cervical radiculopathy 82899426 M54.12 Dysphagia 37163485 R13.1 0 Insomnia 832616046 G47.0 0 Irritable bowel syndrome 90484826 K58.9 Neuropathy 008260796 G62 .9 Paresthesi a of lower extremity 035483651 R20.2 Rheumatoid arthritis 698 94229 M06.9 Sleep apnea 78990605 G47 .30 Type 2 geena betes mellitus without complication 051578135 E11.9 Vitamin D below reference range 668440991 E55.9 Hyperlipidemia 13499647 E78.5 Prolapsed lumbar intervertebral disc 700700109 M51.26 [id number] Leena blake MD [facility] [address] [facility] [address] [place] [address] 04/12/2024 10:58:11 04/12/2024 12:06:52 Screening - NAD 173666791 Z13.9 C-scope: Get thisMammog leatha: Get this done if not donePAP: Get thisDEXA: Get this if not doneShe has refused all referrals today 04/12/2024 , understand s the risks for undiagnose d cancer Get yearly flu shot, get tdap if not doneCan do Shingrix and RSV vaccineCan do COVID 19 boostersCa n do PCV #20She has declined all vaccines today 04/12/2024 , state that she did have COVID 19 vaccines and does not want any other 'shots' states that she lives alone and does not go out RTC in 6 months, do labs, ER if worse, she and her CG did verbalize her understand ing of the above Disorder of esophagus [address] Woods see report on barium swallow 06/03/2023 , as per ENT handwritte n note wanted to see a different CHLOÉ Dr Osborne 03/17/2023 OV 04/12/2024 : Has declined any referrals to GI, explained in detail that she may need an EGD with dilation, but she does not want any referrals Type 2 geena betes mellitus without complication 245874693 E11.9 Not on metformin ER 500mg dailyDoes not want to do any labs, she has declined referrals to eye MD or podiatry Hyperlipidemia 28805459 E78.5 No on zetia 10mg dailyDecli slade any labs Irritable bowel syndrome 34972595 K58.9 Needs to see GI, declined any referrals Low back pain 572782733 M54.50 MRI L Spine 08/06/2023 , was to get epidurals as per her prior PCPDoes have neuropathy now, states that her prior PCPs had given her gabapentin but these did not helpShe has also noted some anxiety not suicidal or homicidal so will initiate cymbalta 30mg dose, will get her to do the sprinkles d/t her difficulty swallowing Full care by hospice 170 262686 Z51.5 As per wishes will refer to hospice and palliative care Dependence on wheel chair 989842142 Z99.3 Can do HH and PT, she is very appreciati ve of this care, states that she does look forward to 'nurses' helping herImpress ed upon her and her CG that she should have 24 hour care, she is adamant that she is safe in her own home 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 as per her history by Dr Jesús Kimball neurologis t in 08/2023Shallie will sign Michelet will consider if she wants to see another neurologis t for this issue, advised her about the features of ALS that this is a progressiv e neuro muscular disease with no known cure, she has expressed her appreciati on for her care thus far in this visit, and states that she understand s her medical condition is progressiv e Health Concerns Section Related Observation LastModified by Organization Detai ls LastModified Time None Recorded Concern Status LastModified by Organization Details LastModified Time None Recorded Advance Directives Directive N: Payers Encounter Date Sequence Insurance Name Policy Number Policy Mcmullen Covered Member ID Mcmullen Member ID Guarantor Name 03/17/2023 1 [facility] [place] [place] Carrie Romero [id number] Carrie Romero 04/19/2023 1 [facility] [place] [place] Carrie Romero [id number] Carrie Romero 07/29/2023 1 [facility] [place] [place] Carrie Romero [id number] Carrie Romero 08/10/2023 1 [facility] [place] [place] Carrie Romero [id number] Carrie Romero 04/12/2024 2 [employer] [place] ON [place] AFTER 2020 (MEDICAID REPLACEMENT - O) Carrie Romero [id number] Carrie Romero 04/12/2024 1 [place] Carrie Romero [id number] Carrie Romero Notes Date Note Type Note Provider Name and Address Organization Details Recorded Time 03/17/2023 text/html CRARIE WAS SEEN I N THE OFFICE TODAY FOR EVALUATION . PT REPORTS DYSPHAGIA IN THE PAST WITH DILATION OF AN ESOPHAGEAL STRICTURE . PT REPORTS THAT SHE DID NOT HAVE INSURANCE . SHE WAS LOST TO F/U. PT NOW C/O FOOD GETTIN STUCK IN THE NECK AREA. SHE IS NOT HANDLING HER SALIVA AND LIQUIDS VERY WELL. SHE HAS A VOICE CHANGE . SHE HAS A HX/O GERD. SHE C/O DIFFICULTY BREATHING . Geni Osborne MD [email or web address], [place], [address], [employer] 03/17/2023 13:02:42 04/19/2023 text/html She reports dysphagia for 15 years. She a procedure for what she believes is a sticture. Sh also report choking episodes which are becoming more frequent. Also slurred speech. She has a neurology appt in May. Justine Woods MD [email or web address], [place], [address], [employer] 04/19/2023 13:01:51 07/29/2023 text/html self employed , cannot make it up stairs 25 steps , self employed , cannot talk , people can't understand her , feels like she is 79 TADEO Campbell [email or web address], [place], [address], [employer] 08/10/2023 16:39:08 08/10/2023 text/html hard time chewin g ,and swallowing . cannot get in to neuro for a year , everywhere she calls , she is beside her self , cannot talk well enough to clients on phone , cannot handle the stairs at her office. she is falling frequently , and scared . she needs to be able to work . TADEO Campbell [email or web address], [place], [address], [employer] 08/10/2023 16:07:44 04/12/2024 text/html OV 04/12/2024: H ere to establish care Present Hx:HLDDMIILBPNeurop athy?ALS Here with her CG, she is wheelchair bound, appears anxious and teary eyed, states that 'i have ALS'States that she was seen in 08/[address] Jesús Kimball in [facility] who did a MRI of the brain and EMGs, states that on her f/u apt, he appeared very dismissive and told her that she had ALS and 'nothing could be done', she was not given a follow up appointment and he left the roomShe is upset that the neurologist did not offer her any help, she is now resigned that she is to ' soon' and would like to get 'hospice'She does c/o LBP and neuropathy in her legs, states that she was treated in the past with gabapentin and this did not help her at all, she would like to get on any other medicationShe also c/o feeling depressed, not suicidal or homicidal, is not on any medicationsShe also has difficulty swallowing, states that the 'ALS' prevents her from eating solid foods as it get 'stuck in the chest', she has had testing and was told her esophagus was not working, she does try to eat soft meals, she states that she does live alone by herself but has help every day with various services for her ADLs and IADLs Leena Hoffman MD [address] [facility] [address], [place], [address], [facility] 04/12/2024 18:28:18 OBGyn Episode No OBEpisode recorded.
--- OUTSIDE RECORDS SUMMARY | 2024-04-16 04:13 | XMS_ITS | Patient Health Record ---
Author Organization [facility] Address [address] [facility] [address] [place], [place] [address] Care Team Providers Care Chief Contract Officer Name Role Phone VAL LEE Primary Care Provider Unavailab Rafaela William Unavailable [phone] Gracie Davis Unavailable [phone] ALLERGIES Allergen (clinical drug ingredient) Drug/Non Drug Allergy documented on EMR Reaction Allergy Type Onset Date Status hydromorphone Dilaudid extreme vomit, nausea Drug Allergy Active RESULTS Component Value Reference Range Notes Complement C4, Serum Reviewed date:05/13/2023 10:41:20 AM Interpretation: Performing Lab:[employer], [employer] [facility], Phone - [phone], Director - [facility] Notes/Report: Complement C4, Serum 28 12-38 mg/dL Complement, Total (CH50) Reviewed date:05/13/2023 10:41:20 AM Interpretation: Performing Lab:[employer], [address] [facility] [address], Phone - [phone], Director - [facility] Notes/Report: Complement, Total (CH50) >60 >41 U/mL Age Male Female 1 - 30 days Not Estab. Not Estab. 31 days - 6 months >32 >20 7 months - 17 years >39 >39 >17 years >41 >41 NOTE: The adult ( >17 years ) reference interval range is used to flag abnormals on this report. If the patient is 17 years old or younger, use the table above to determine out of range values. CBC With Differential/Platel et Reviewed date:05/13/2023 10:41:20 AM Interpretation: Performing Lab:[employer] [place], [address], Phone - [phone], [facility] Notes/Report: WBC 5.1 3.4-10.8 x10E3/uL RBC 5.25 3.77-5.28 x10E6/uL Hemoglobin 15.5 11.1-15.9 g/dL Hematocrit 46.0 34.0-46.6 % MCV 88 79-97 fL MCH 29.5 26.6-33.0 pg MCHC 33.7 31.5-35.7 g/dL RDW 12.8 11.7-15.4 % Platelets 405 150-450 x10E3/uL Neutrophils 53 Not Estab. % Lymphs 37 Not Estab. % Monocytes 8 Not Estab. % Eos 1 Not Estab. % Basos 1 Not Estab. % Immature Cells Neutrophils (Absolute) 2.7 1.4-7.0 x10E3/uL Lymphs (Absolute) 1.9 0.7-3.1 x10E3/uL Monocytes(Absolute) 0.4 0.1-0.9 x10E3/uL Eos (Absolute) 0.1 0.0-0.4 x10E3/uL Baso (Absolute) 0.1 0.0-0.2 x10E3/uL Immature Granulocytes 0 Not Estab. % Immature Grans (Abs) 0.0 0.0-0.1 x10E3/uL NRBC Hematology Comments: Sed Rate - Westergren Reviewed date:05/13/2023 10:41:20 AM Interpretation: Performing Lab:[facility] [place], [address] [facility] [address], Phone - [phone], [facility] Notes/Report: Sedimentation Rate-Westergren 16 0-40 mm/hr Complement C3, Serum Reviewed date:05/13/2023 10:41:20 AM Interpretation: Performing Lab:[facility] [employer] [place], [address] [facility] [address], Phone - [phone], [facility] Notes/Report: Complement C3, Serum 139 82-167 mg/dL C-Reactive Protein, Quant Reviewed date:05/13/2023 10:41:20 AM Interpretation: Performing Lab:[facility] [place], [address] [facility] [address], Phone - [phone], Director - Vivek Notes/Report: C-Reactive Protein, Quant <1 0-10 mg/L HLA B 27 Disease Association Reviewed date:05/13/2023 10:41:20 AM Interpretation: Performing Lab:[facility] [place], [address] [facility] [address], Phone - [phone], Director - Vivek Notes/Report: HLA-B27 Negative HLA-B*27 Negative B27 allele interpretation for all loci based on IMGT/HLA database version 3.51.0 This test was developed and its performance characteristics determined by [employer]. It has not been cleared or approved by the Food and Drug Administration. HLA Lab CLIA ID Number [id number] THis test was performed using Polymerase Chain Reaction (PCR) and Sequence Specific Oligonucleotide Probes (SSOP) technique. Sequence Based Typing (SBT) may be used as a supplemental method when necessary. If you have questions, please call Bedrock Analyticser service at or email at [email or web address]. Metabolic Panel (14) Reviewed date:05/13/2023 10:41:20 AM Interpretation: Performing Lab:[facility] [place], [address] [facility] [address], Phone - [phone], Director - Vivek Notes/Report: Glucose 107 70-99 mg/dL BUN 16 6-24 mg/dL Creatinine 0.75 0.57-1.00 mg/dL eGFR 92 >59 mL/min/1.73 BUN/Creatinine Ratio 21 9-23 Sodium 139 134-144 mmol/L Potassium 4.5 3.5-5.2 mmol/L Chloride 101 96-106 mmol/L Carbon Dioxide, Total 24 20-29 mmol/L Calcium 9.9 8.7-10.2 mg/dL Protein, Total 7.0 6.0-8.5 g/dL Albumin 4.6 3.8-4.9 g/dL Globulin, Total 2.4 1.5-4.5 g/dL A/G Ratio 1.9 1.2-2.2 Bilirubin, Total 0.8 0.0-1.2 mg/dL Alkaline Phosphatase 81 44-121 IU/L AST (SGOT) 33 0-40 IU/L ALT (SGPT) 33 0-32 IU/L TIERA Panel (TIERA+JENNIFER+Scl 70+Sj Sara+SjoSSB) Reviewed date:05/13/2023 10:41:20 AM Interpretation: Performing Lab:[facility] [place], [address] [address], Phone - [phone], Director - Vivek Notes/Report: TIERA by IFA Rfx Titer/Pattern Positive Negative <1:80 Borderline 1:80 Positive >1:80 LINOTYPE MACHINIST APPRENTICE Antibodies <0.2 0.0-0.9 AI Guajardo Antibodies <0.2 0.0-0.9 AI Antiscleroderma-70 Antibodies <0.2 0.0-0.9 AI Sjogren's Anti-SS-A <0.2 0.0-0.9 AI Sjogren's Anti-SS-B <0.2 0.0-0.9 AI Homogeneous Pattern Nucleolar Pattern 1:160 ICAP nomen clature: AC-8,9,10 Speckled Pattern Centromere Pattern Spindle Apparatus Pattern Nuclear Membrane Pattern Midbody Pattern Nuclear Dot Pattern PCNA Pattern Centriole Pattern Note: Pattern Potential Disease Association Homogeneous Systemic Lupus Erythematosus, Drug Induced Systemic Lupus Erythematosus, Chronic Autoimmune hepatitis, Juvenile Idiopathic Arthritis Speckled Sjogren Syndrome, Systemic Lupus Erythematosus, Subacute Cutaneous Lupus, Lupus, Congenital Heart Block, Mixed Connective Tissue Disease, Scleroderma-diffuse, Scleroderma-Autoimmune Myositis Overlap Syndrome, Systemic Lupus Ssxjxkbwppydb-Slzlllpgjyv-Fju oimmune Myositis Overlap Syndrome, Systemic Autoimmune Rheumatic Disease, Undifferentiated Connective Tissue Disease Nucleolar Systemic Sclerosis, Scleroderma-Autoimmune Myositis Overlap Syndrome, Sjogren Syndrome, Raynaud phenomenon, Pulmonary Arterial Hypertension, Systemic Autoimmune Rheumatic Disease, Cancer Centromere Scleroderma-CREST, Limited Cutaneous SSc, Raynaud's Phenomenon, Primary Biliary Cholangitis Nuclear Dot Primary Biliary Cholangitis Nuclear Primary Biliary Cholangitis, Autoimmune Membrane Hepatitis/Liver disease, Systemic Autoimmune Rheumatic Disease, Autoimmune Cytopenias, Linear Scleroderma, Antiphospholipid Syndrome DS DNA-CRITHIDIA IFA W/REFLE X TO [facility]ITER-[facility] Reviewed date:05/13/2023 10:41:20 AM Interpretation: Performing Lab:[facility] [place], [address], Phone - [phone], Director - Vivek Notes/Report: dsDNA Crithidia luciliae IFA Negative Negative Urinalysis, Complete Reviewed date:05/13/2023 10:41:20 AM Interpretation: Performing Lab:[facility] [place], [address] [facility], [place], Phone - [phone], Director - Vivek Notes/Report: Specific [place] 1.027 1.005-1.030 pH 5.5 5.0-7.5 Urine-Color Yellow Yellow Appearance Clear Clear WBC Esterase Negative Negative Protein Trace Negative/Trace Glucose Negative Negative Ketones Negative Negative Occult Blood Negative Negative Bilirubin Negative Negative Urobilinogen,Semi-Qn 0.2 0.2-1.0 mg/dL Nitrite, Urine Negative Negative Microscopic Examination Micr oscopic follows if indicated. Microscopic Examination See below: Micr oscopic was indicated and was performed. WBC None seen 0 - 5 /hpf RBC None seen 0 - 2 /hpf Epithelial Cells (non renal) 0-10 0 - 10 /hpf Epithelial Cells (renal) Casts None seen None seen /lpf Cast Type Crystals Crystal Type Mucus Threads Bacteria None seen None seen/Few Yeast Trichomonas Comment ANCA Profile Reviewed date:05/13/2023 10:41:20 AM Interpretation: Performing Lab:[facility] [place], [address] [facility] [address], Phone - [phone], Director - Vivek Notes/Report: Anti-MPO Antibodies <0.2 0.0-0.9 units Anti-PR3 Antibodies <0.2 0.0-0.9 units Cytoplasmic (C-ANCA) <1:20 Neg:<1:20 titer Perinuclear (P-ANCA) <1:20 Neg:<1:20 titer The presence of positive fluorescence exhibiting P-ANCA or C-ANCA patterns alone is not specific for the diagnosis of Dorene's Granulomatosis (WG) or microscopic polyangiitis. Decisions about treatment should not be based solely on ANCA IFA results. The International ANCA Group Consensus recommends follow up testing of positive sera with both MS-3 and MPO-ANCA enzyme immunoassays. As many as 5% serum samples are positive only by EIA. Ref. AM J Clin Pathol 1999;111:507-513. Atypical pANCA <1:20 Neg:<1:20 titer The atypical pANCA pattern has been observed in a significant percentage of patients with ulcerative colitis, primary sclerosing cholangitis and autoimmune hepatitis. REASON FOR REFERRAL No Information MEDICATIONS Medication SIG (Take, Route, Fr equency, Duration) Notes Start Date End Date Status metFORMIN 500 mg 1 tab(s) orally 2 times a day Active SOCIAL HISTORY Sex Assigned At : Social History Observation Description Sex Assigned At Unknown PROBLEMS Problem Type ICD Code Onset Dates Problem Status W/U Status Risk SNOMED Code Notes Problem Dry mouth (R68.2) Active confirmed 81847082 Problem Neck pain (M54.2) Active confirmed 13293728 Problem Paresthesia (R20.2) Active confirmed 16875796 Problem Dry eye (H04.129) Active confirmed 204597019 Problem Low back pain at multiple sites (M54.50) Active confirmed 485840776 VITAL SIGNS Heart Rate 116 /min 05/28/2023 Blood pressure diastolic 78 mm Hg 05/28/2023 Height 65 in 05/28/2023 Blood pressure systolic 131 mm Hg 05/28/2023 Weight 147 lbs 05/28/2023 BMI 24.46 kg/m2 05/28/2023 Encounters Encounter Location Date Provider Diagnosis [facility] [address] [place] [address], [address] [id number] 05/28/2023 Gracie Aliyahbrist Paresthesia R20.2 ; TIERA positive R76.8 and Low back pain at multiple sites M54.50 [facility] [address] [place] [address], [address] [id number] 05/06/2023 Akgun Vishal Low back pain at multiple sites M54.50 ; Neck pain M54.2 ; Dry eye H04.129 and Dry mouth R68.2 [facility] [address] [place] [address], [address] [id number] 05/04/2023 Akalice Chisholme [facility] [address] [place] [address], [address] [id number] 05/31/2023 Akalice Chisholme ASSESSMENTS Encounter Date Diagnosis Assessment Notes Treatment Notes Treatment Clinical Notes 05/28/2023 TIERA positive (ICD-10 - R76.8) 05/28/2023 Paresthesia (ICD-10 - R20.2) 05/06/2023 Neck pain (ICD-10 - M54.2) 05/06/2023 Low back pain at multiple sites (ICD-10 - M54.50) 05/28/2023 Low back pain at multiple sites (ICD-10 - M54.50) 05/06/2023 Dry eye (ICD-10 - H04.129) 05/06/2023 Dry mouth (ICD-10 - R68.2) PLAN OF TREATMENT Pending Test Test Name Order Date X ray : Spines, lumbar- outside order X ray : Spines, cervical- outside order 05/06/2023 X ray : SI joints- outside order 024 Insurance Providers Payer Name Payer Address Payer Phone Subscriber Number Group Number Insured Name Patient Relationship to Insured Coverage Start Date Coverage End Date [employer] Exchange NO Referral RQD [address] [place] [phone] [id number] Carrie Peralta Self - patient is the insured 4 MEDICAL (GENERAL) HISTORY Medical History History ICD Code Unspecified inflammatory spondylopathy, 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
--- OUTSIDE RECORDS SUMMARY | 2024-04-16 04:13 | XMS_ITS ---
Author Organization [facility] Address [address] [place], [place] [address] Care Team Providers Care Online Advertising Director Name Role Phone VAL LEE Primary Care Provider Unavailab tristan ChisholmRafaela kelley Unavailable [phone] ALLERGIES Allergen (clinical drug ingredient) Drug/Non Drug Allergy documented on EMR Reaction Allergy Type Onset Date Status hydromorphone Dilaudid extreme vomit, nausea Drug Allergy Active RESULTS Component Value Reference Range Notes Complement C4, Serum Reviewed date:05/13/2023 10:41:20 AM Interpretation: Performing Lab:[facility], [address] [place] [address], Phone - [phone], Director - [facility] Notes/Report: Complement C4, Serum 28 12-38 mg/dL Complement, Total (CH50) Reviewed date:05/13/2023 10:41:20 AM Interpretation: Performing Lab:[facility], [address] [facility], Phone - [phone], [facility] Notes/Report: Complement, Total (CH50) >60 >41 U/mL [...] et Reviewed date:05/13/2023 10:41:20 AM Interpretation: Performing Lab:[facility] [address] [place] [address], Phone - [phone], Director - [facility] Notes/Report: WBC 5.1 3.4-10.8 x10E3/uL RBC 5.25 [...] Westergren Reviewed date:05/13/2023 10:41:20 AM Interpretation: Performing Lab:[facility] [place] [address] [place] [address], Phone - [phone], Director - [facility] Notes/Report: Sedimentation Rate-Westergren 16 0-40 mm/hr Complement C3, Serum Reviewed date:05/13/2023 10:41:20 AM Interpretation: Performing Lab:[facility] [place] [address] [place] [address], Phone - [phone], Director - [facility] Notes/Report: Complement C3, Serum 139 82-167 mg/dL C-Reactive Protein, Quant Reviewed date:05/13/2023 10:41:20 AM Interpretation: Performing Lab:[facility] [place], [address] [facility], Phone - [phone], Director - [facility] Notes/Report: C-Reactive Protein, Quant <1 0-10 mg/L HLA B 27 Disease Association Reviewed date:05/13/2023 10:41:20 AM Interpretation: Performing Lab:[facility] [place], [address] [facility], Phone - [phone], Director - Vivek Notes/Report: HLA-B27 Negative HLA-B*27 Negative B27 allele interpretation for all loci based on IMGT/HLA database version 3.51.0 This test was developed and its performance characteristics determined by [facility]. It has not been cleared or approved by the Food and Drug Administration. HLA Lab CLIA ID Number [id number] THis test was performed using Polymerase Chain Reaction (PCR) and Sequence Specific Oligonucleotide Probes (SSOP) technique. Sequence Based Typing (SBT) may be used as a supplemental method when necessary. If you have questions, please call [employer]omo Nut Companyer service at or email at [email or web address]. Comp. Metabolic Panel (14) Reviewed date:05/13/2023 10:41:20 AM Interpretation: Performing Lab:[facility], [address] [facility], Phone - [phone], [facility] - [facility] Notes/Report: Glucose 107 70-99 mg/dL BUN 16 [...] Reviewed date:05/13/2023 10:41:20 AM Interpretation: Performing Lab:[facility] [place], [address] [facility], Phone - [phone], Director - V[facility] Notes/Report: TIERA by IFA Rfx Titer/Pattern Positive Negative <1:80 Borderline 1:80 Positive >1:80 STUDENT UNION CONSULTANT Antibodies <0.2 0.0-0.9 AI Guajardo Antibodies <0.2 [...] Scleroderma-diffuse, Scleroderma-Autoimmune Myositis Overlap Syndrome, Systemic Lupus Xbbwbioobywci-Qkgwbgxlfbj-Iwt oimmune Myositis Overlap Syndrome, Systemic Autoimmune Rheumatic [...] Syndrome DS DNA-CRITHIDIA IFA W/REFLE X TO [facility] Reviewed date:05/13/2023 10:41:20 AM Interpretation: Performing Lab:[facility] [place], [address] [facility], Phone - [phone], Director - Vivek Notes/Report: dsDNA Crithidia luciliae IFA Negative Negative Urinalysis, Complete Reviewed date:05/13/2023 10:41:20 AM Interpretation: Performing Lab:[facility] [place], [address] [facility], [place], Phone - [phone], Director - Vivek Notes/Report: Specific [place] 1.027 1.005-1.030 pH 5.5 5.0-7.5 Urine-Color Yellow [...] Profile Reviewed date:05/13/2023 10:41:20 AM Interpretation: Performing Lab:[facility] [place], [address] [facility], [place], Phone - [phone], Director - Vivek Notes/Report: Anti-MPO Antibodies <0.2 [...] up testing of positive sera with both OH-3 and MPO-ANCA enzyme immunoassays. As many as 5% serum samples are positive only by EIA. Ref. AM J Clin Pathol 1999;111:507-513. Atypical pANCA <1:20 Neg:<1:20 titer The atypical pANCA pattern has been observed in a significant percentage of patients with ulcerative colitis, primary sclerosing cholangitis and autoimmune hepatitis. REASON FOR VISIT lbp MEDICATIONS Medication SIG (Take, Route, Fr equency, Duration) Notes Start Date End Date Status metFORMIN 500 mg 1 tab(s) orally 2 ti mes a day for 30 day(s) Active PROBLEMS Problem Type ICD Code Onset Dates Problem Status W/U Status Risk SNOMED Code Notes Problem Low back pain at multiple sites (M54.50) Active confirmed [id number] Problem Neck pain (M54.2) Active confirmed 78251119 Problem Dry eye (H04.129) Active confirmed 476941583 Problem Dry mouth (R68.2) Active confirmed 54705580 VITAL SIGNS BMI 24.79 kg/m2 05/06/2023 Blood pressure systolic 102 mm Hg 05/06/19 24 Blood pressure diastolic 69 mm Hg 024 Heart Rate 104 /min 05/06/2023 Height 65 in 05/06/2023 Weight 149 lbs 05/06/2023 Encounters Encounter Location Date [facility] [place] [place], [place] [id number] 05/06/2023 Akgun Vishal Low back pain at multiple sites M54.50 ; Neck pain M54.2 ; Dry eye H04.129 and Dry mouth R68.2 ASSESSMENTS Encounter Date Diagnosis Assessment Notes Treatment Notes Treatment Clinical Notes 05/06/2023 Low back pain at multiple sites (ICD-10 - M54.50) 05/06/2023 Neck pain (ICD-10 - M54.2) 05/06/2023 Dry eye (ICD-10 - H04.129) 05/06/2023 Dry mouth (ICD-10 - R68.2) PLAN OF TREATMENT Pending Test Test Name Order Date X ray : Spines, lumbar- outside order X ray : Spines, cervical- outside order 05/06/2023 X ray : SI joints- outside order 024 Next Appt Details Follow Up: 2 Weeks, Gracie [place], Reason: Progress Notes * Examination Category Sub-Category Detail Notes General Constitutional: No acute distres s HEENT: PERRLA, Neck supple, Normal sclerae and conjunctivae Cardiovascular RSR, No murmurs, Nor mal peripheral pulsations, No edema Lungs: clear to ausculation Abdomen: soft, no organomegal y or masses /Rectal: not done Skin: No cutaneous lesions . No subcutaneous nodules noted in the 4 extremities Neurological: No focal neurologica l findings Heme/Lymphatic: No cervical, axillar y, or inguinal adenopathy Psych: Alert, oriented x 3, Normal affect Musculoskeletal: Normal strength. No muscle atrophy Joint Exam Shoulders No swelling. No [...] Sub-Category Detail Notes MDHAQ Summary Function (0-10):: 5.7 Pain (0-10):: 7.5 Patient Global Assessment of Disease Activity (0 -10):: 9 RAPID3 Score (0-30):: 22.2 Physician Global Assessment of Disease Activity (0-10):: 3 Prognosis Good w/tx Erosive Damage No
--- OUTSIDE RECORDS SUMMARY | 2024-04-16 04:13 | XMS_ITS | Clinical Summary ---
Author Organization [facility] Address [address], [address] [address] Phone Care Team Providers Care Teaching Manager Name Role Phone Yun Padgett MD Primary Care Provider [phone] Social History Tobacco Use Types Packs/Day Years Used Date Smoking Tobacco: Never Assessed Comments Unknown Sex and Gender Information Value Date Recorded Sex Assigned at Not on file Legal Sex Female 9:06 PM CDT Gender Identity Not on file Sexual Orientation Not on file Plan of Treatment Health Maintenance Due Date Last Done Comments Hepatitis C Virus (HCV) Screening 1965 TdaP Immunization 1965 Pap Smear 01/30/1985 Cervical Cancer Screening (CCS) 01/30/1994 HPV/Cotest 01/30/1994 Cologuard 01/30/2014 Immunochemical Fecal Occult Blood 01/30/2014 Mammogram 01/30/2014 Pneumococcal Immunization (5 0+ years) (1 of 1 - PCV) 01/30/2014 Zoster Immunization (1 of 2) 01/30/2014 Influenza Immunization (#1) 2023 SARS-COV-2 Immunization ( - season) 2023 Colonoscopy 04/07/2028 04/07/2018 Colorectal Cancer Screening 04/07/2028 Respiratory Syncytial Virus (RSV) Immunization (Adult) (1 - 1-dose 75+ series) 01/30/2039 04/07/2018 Hepatitis B Immunization Aged Out No longer eligible based on patient's age to complete this topic Meningococcal Immunization (ACWY) Aged Out No longer eligible based on patient's age to complete this topic Pneumococcal Immunization Combined Aged Out No longer eligible based on patient's age to complete this topic Rotavirus Immunization Aged Out No lo nger eligible based on patient's age to complete this topic Procedures Procedure Name Priority Date/Time Associated Diagnosis Comments COLONOSCOPY Routine 04/07/2018 from Last 3 Months or Most Recently Relevant to Health Maintenance Results * COLONOSCOPY (04/07/2018) Sander Cabrera DO PROCEDURE/MINOR SURGICAL ORDERA BLES Final Result from Last 3 Months or Most Recently Relevant to Health Maintenance Insurance [employer]ID [employer] Care Teams Teaching Manager Relationship Specialty Start Date End Date Yun Padgett MD [facility] [address] PCP - General Linen Sorter 03/21/18
--- OUTSIDE RECORDS SUMMARY | 2024-04-16 04:13 | XMS_ITS | Continuity of Care Document ---
Author Organization [facility] Address [address] [place] [address] Phone Care Team Providers Care Maple Syrup Maker Name Role Phone Jose Tariq MD Unavailable Unavailable Allergies, Adverse Reactions, Alerts Substance Reaction Status Criticality HYDROMORPHONE HCL Nausea / Vomiting Active No In formation Medications Medication Instructions Dosage Effective Dates (start - stop) Status Comments metformin ER 500 mg tablet,extended release 24hr (osmotic) take 1 Tablet by oral route every day with the evening meal 500 MG - Active Procedures Procedure Date OFFICE/OUTPATIENT VISIT, EST OFFICE/OUTPATIENT VISIT, EST PREV VISIT, NEW, AGE 40-64 OFFICE/OUTPATIENT VISIT, NEW Advance Directives Directive Yes / No Effective Date File Name No Information Encounters Encounter Description Practice Location Reason(s) For Visit Diagnoses Date Provider Providers Copied on Encounter OFFICE/OUTPA TIENT VISIT, [facility], [email or web address] [facility] [address] [place], [place], [id number], tel:[phone] [facility] HLP (chief complaint) LFT (chief complaint) polycythem ia1 (chief complaint) dysphagia1 (chief complaint) ANA1 (chief complaint) gait issue1 (chief complaint) Generalized Anxiety DisorderRaised antibody titerSecondary polycythemiaLiver diseaseMixed hyperlipidemiaOther specified abnormal findings of blood chemistryDysphagiaH yperglycemiaOther specified disorder of bone densityAbnormalitie s of gait 4 Marciano Garcia. [address] [place], [id number] , [place]. tel:[phone] OFFICE/OUTPA TIENT VISIT, EST [facility], [address], [place], [id number], tel:[phone] [facility] pain1 (chief complaint) anxiety1 (chief complaint) dysphagia1 (chief complaint) DysphagiaGeneralize d Anxiety DisorderNeuropathyA bnormal reflexAbnormalities of gait 4 Marciano Garcia. [address], [place], [place], [id number] , . tel:[phone] PREV VISIT, NEW, AGE 40-64 [facility], [address], [place], [place], [id number], [place] tel:[phone] [facility] physical (chief complaint) Encounter for general adult medical exam w abnormal findingsNeuropathyD ysphagiaMuscle weaknessRaised antibody titerHyperglycemiaG eneralized Anxiety Disorder May- 4 Tariq Jose. [address] [facility] [place], [id number] , . tel:[phone] Family History Family Member Type Diagnosis Age At Onset Sister Problem Asthma Mother Problem Asthma Father Problem of [place] 68 Mother Problem Renal disease Payers Payer name Insurance type Covered libertarian ID Authoriza tion(s) No Information Social History Type Description Quantity Date Captured Comments Alcohol Use Details Caffeine Use Details Unknown Tobacco Use Status Current non-smoker Smoking Status Never smoker Sex Female Vital Signs Date / Time: Height Weight BMI Pulse Rate Blood Pressure Temperature Respiratory Rate Body Surface Area Head Circumference BMI percentile Pulse Ox Inhaled Ox 11:23 AM 65.00 in 139.40 lbs 23.2 0 kg/m eter (2) 104 /min 120/80 mm[Hg] 97.7 F 16 /min Chief Complaint And Reason For Visit From encounter dated 07/16/2023 11:22'. HLP (chief complaint). Description: Pt has HLP Pt is not on any diet LFT (chief complaint). Description: Pt has mildly high LFT .pt denies any abd pain or jaundice. Pt rarely drink alcohol. polycythemia1 (chief complaint). Description: Pt has mild polycythemia with normal iron. Pt denies any snoring .pt has mild fatigue. Pt has high b12 .Pt states that she is getting [facility] currently dysphagia1 (chief complaint). Description: Pt has mild dysphagia and GERD. Pt is not taking metformin and she does not want to do EGD and colonoscopy. ANA1 (chief complaint). Description: Pt does have positive TIERA. Pt denies any sabi joint pain Pt told me she saw rheumatology recently and was told that she does not have any active rheumatological disease. gait issue1 (chief complaint). Description: Pt states that she has diffuse worsening gait stabilityand speech difficulty pt states that her previous neurologist told her that all her symptoms are from her head and has not done any further work up. Pt did have normal MRI of brain per patient. She wants to see another neurologist. Plan Of Treatment Date Type Action Status Referral Ordered: Neurology (related to Abnormalities of gait) ordered Referral Ordered: Referrals: Neurology. Evaluate and treat ordered Referral Ordered: MRI LUMBAR SPINE W/O DYE ordered Referral Ordered: MRI THORACIC SPINE W/O DYE ordered Referral Ordered: MRI NECK SPINE W/O DYE ordered Referral Ordered: COLONOSCOPY AND BIOPSY ordered History Of Present Illness Encounter Date Complaint History Of Prese nt Illness polycythemia1 Pt has mild poly cythemia with normal iron. Pt denies any snoring .pt has mild fatigue. Pt has high b12 .Pt states that she is getting b12 shot [facility] currently HLP Pt has HLP Pt is not on any diet LFT Pt has mildly hi gh LFT .pt denies any abd pain or jaundice. Pt rarely drink alcohol. gait issue1 Pt states that s he has diffuse worsening gait stability and speech difficulty pt states that her previous neurologist told her that all her symptoms are from her head and has not done any further work up. Pt did have normal MRI of brain per patient. She wants to see another neurologist. ANA1 Pt does have pos itive TIERA. Pt denies any sabi joint pain Pt told me she saw rheumatology recently and was told that she does not have any active rheumatological disease. dysphagia1 Pt has mild dysp hagia and GERD. Pt is not taking metformin and she does not want to do EGD and colonoscopy. pain1 Pt has chronic n tarun and low back pain Pt denies any radiculopathy. Pt notices sciatica to both legs with bilateral LE numbness and tingling, but worse on left side. Pt denies any loss of bowel or bladder control or saddle area paresthesia. Pt c/o bilateral leg weakness. Pt denies any headache Pt does have peripheral neuropathy on EMG recently by neurology. Pt states that she has difficulty with ambulation due to bilateral leg weakness . Pt has unsteady gait and frequent falls as well dysphagia1 Pt has some dysp hagia with GERD Pt has not started omeprazole yet. Pt is waiting for endoscopy anxiety1 Pt has chronic a nxiety and depression pt has not started lexapro yet Pt denies any suicidal or homicidal thought Pt denies any crying spells . physical Pt needs annual physical. Pt is pre-diabetic and she is on metformin for one year Pt does not check her glucose. Pt denies any polyuria, polydipsia. Pt c/o bilateral foot and hand numbness, worse on left side, poor balance, tendency to fall, bilateral central leg weakness, slurred speech, difficulty with chewing and swallowing for one year. Pt states that she has saliva and food stuck around throat area which chokes her and she has difficulty with breathing sometimes. Pt has chronic GERD as well. Pt is not sure if she had EGD in the past. Pt had negative barium swallow study recently. Pt also saw ENT recently who referred her to GI but was told they can not help. pt denies any rash, Pt denies any diffuse joint pain. Pt denies any headache or vision change. Pt saw neurologist and her last visit was last month and she had normal MRI of brain and EMG of both LEs and was told that she has peripheral neuropathy only. Pt also saw emergency communications dispatcher and she had negative lumbar and C spine x ray which was ok. Pt denies any sciatica or any loss of bowel or bladder control or saddle area paresthesia. Pt notices bilateral upper leg twitching sometimes. Pt had lab done by rheumatology recently and she was told no autoimmune disease and she was told to get 2nd opinion from a different neurology. Pt has chronic anxiety and depression due to above medical condition Pt denies any suicidal or homicidal thought Instructions Date Instruction Additional Infor rohan No Information Assessments Type Assessment Date assessment Generalized Anxiety Disorder June assessment Raised antibody titer assessment Secondary polycythemia assessment Liver disease assessment Mixed hyperlipidemia assessment Other specified abnormal finding s of blood chemistry assessment Dysphagia assessment Hyperglycemia assessment Other specified disorder of bone density assessment Abnormalities of gait Mental Status Date Cognitive Assessment Orientation - Beattie ed to time, place, person, situation.
--- NOTE | 2024-04-16 04:18 | ED.GENADULT ---
HPI - General Adult General Chief complaint: Nausea/Vomiting/Diarrhea Stated complaint: n/v/d Time Seen by Provider: 04/16/24 03:33 History of Present Illness HPI narrative: Patient is a 59-year-old female who presents to the emergency department this evening via EMS with a complain of nausea, vomiting and diarrhea after taking the 10 mg gummy to help her sleep. Patient states that initially she took 5 mg and then a while later took the other 5 mg. Shortly after, patient started to have diarrhea all the way from her bedroom to the bathroom. She was administered 4 mg of Zofran by EMS prior to arrival and started on IV fluids with 1 L bolus with normal saline. Patient is currently denying any chest pain, shortness of breath, abdominal pain, dysuria or hematuria. No additional symptoms or concerns at this time. Related Data Allergies Allergy/AdvReac Type Severity Reaction Status Date / Time hydromorphone AdvReac Intermediate SEVERE Verified 04/16/24 03:55 VOMITING Review of Systems Review of Systems: All systems are reviewed and are negative unless stated otherwise in the HPI. [facility] Family History Family History Other Asthma Carcinoma of colon Social History Social History Smoking status: Never smoker Alcohol intake: never Exam Narrative: General: Alert, awake, afebrile, in no acute distress. HEENT: PERRL, no rhinorrhea, no post nasal drip, oropharynx clear. Neck: Trachea midline, no JVD, no lymphadenopathy. Cardiovascular: Regular rate and rhythm, no murmurs, rubs or gallops, no peripheral edema. Respiratory: Clear to auscultation bilaterally, no tachypnea, no wheezing, no rhonchi, no rubs, no respiratory distress. Abdomen: Soft, nontender, nondistended, no rebound, no guarding, no peritoneal signs. Musculoskeletal: No joint swelling or deformity, normal muscle tone. Skin: No rashes or petechia, no signs of infection. Psychiatric: Alert and oriented, normal behavior and judgment for situation. Neurological: Alert and oriented to person, place, and time. Follows all commands. No focal deficits, speech is clear and fluent. Course Vital Signs Vital signs: Vital Signs Temperature 97.3 F L 04/16/24 03:35 Pulse Rate 93 04/16/24 03:35 Respiratory Rate 17 04/16/24 03:35 Blood Pressure 113/86 04/16/24 03:35 Pulse Oximetry 100 04/16/24 03:35 Oxygen Delivery Room Air 04/16/24 03:35 Temperature 97.3 F L 04/16/24 03:35 Pulse Rate 94 04/16/24 06:34 Respiratory Rate 17 04/16/24 06:34 Blood Pressure 109/74 04/16/24 06:34 Pulse Oximetry 98 04/16/24 06:34 Oxygen Delivery Room Air 04/16/24 03:35 Medical Decision Making MDM Narrative Medical decision making narrative: The patient was evaluated by myself in the emergency department. History is obtained from patient who is an independent historian along with EMS report and physical exam was performed. External medical records were reviewed at this time. IV was established and pertinent tests were ordered. Patient was administered a 2 L IV fluid bolus with normal saline and 4 mg of IV Zofran for nausea/vomiting. Laboratory results obtained revealing transaminitis with an AST of 86 and an ALT of 89, no previous liver function enzymes are available for comparison, otherwise no acute process. Viral swabs were obtained and noted to be negative for COVID/influenza/RSV. Viral swabs were obtained and noted to be negative for COVID/influenza/RSV. Patient was informed that she will need to have her liver enzymes rechecked by her primary care physician to monitor for resolution. Differential diagnosis considerations include drug abuse, dehydration, electrolyte derangements, acute viral syndrome. Comorbidities impacting this visit include none. I have evaluated and discussed social determinants of health with the patient that could potentially impact subsequent diagnosis and treatment plans. On repeat assessment of the patient, reevaluation revealed that the patient is doing well and is in no acute distress. Patient symptoms have improved since she arrived to our emergency department. Repeat vital signs were all reviewed and noted to be stable. Differential diagnosis and treatment plan were discussed with the patient at bedside. Patient agrees with discussion and after shared medical decision making agrees with discharge. All questions were answered to the patient's satisfaction. Patient will follow up with her PCP in 3-5 days. Script for Zofran was sent to patient's pharmacy to use as needed for nausea/vomiting. Patient was provided with strict return precautions and instructed to return to the emergency department if any new or worsening symptoms develop. The patient was discharged in stable condition. Vital Signs Vital Signs: Vital Signs Temperature 97.3 F L 04/16/24 03:35 Pulse Rate 93 04/16/24 03:35 Respiratory Rate 17 04/16/24 03:35 Blood Pressure 113/86 04/16/24 03:35 Pulse Oximetry 100 04/16/24 03:35 Oxygen Delivery Room Air 04/16/24 03:35 Temperature 97.3 F L 04/16/24 03:35 Pulse Rate 94 04/16/24 06:34 Respiratory Rate 17 04/16/24 06:34 Blood Pressure 109/74 04/16/24 06:34 Pulse Oximetry 98 04/16/24 06:34 Oxygen Delivery Room Air 04/16/24 03:35 Lab Data 04/16/24 03:41 04/16/24 03:41 Labs: Lab Results 04/16/24 Range/Units 03:41 WBC 5.4 (4.5-10.0) K/mm3 RBC 4.79 (4.2-5.4) M/mm3 Hgb 14.1 (12.0-15.0) g/dL Hct 42.5 (37.0-47.0) % MCV 88.7 (80-100) fl MCH 29.4 (26-34) pg MCHC 33.2 (32-36) g/dl RDW 13.0 (11.5-14.5) % Plt Count 313 (150-375) k/mm3 MPV 9.3 (7.4-10.4) fl Immature Gran % (Auto) 0.2 (0-0.5) % Neut % (Auto) 48.6 (45.5-73.1) % Lymph % (Auto) 42.3 (18.3-44.2) % [place] % (Auto) 6.7 (2.6-8.5) % Eos % (Auto) 0.9 (0-4.4) % Baso % (Auto) 1.3 H (0.2-1.2) % Lymph # (Auto) 2.28 (0.9-3.2) K/mm3 [place] # (Auto) 0.4 (0.1-0.6) K/mm3 Eos # (Auto) 0.1 (0-0.3) K/mm3 Baso # (Auto) 0.1 (0.0-0.1) K/mm3 Abs Immat Gran (auto) 0.01 (0.00-0.031) K/mm3 Absolute Neuts (auto) 2.6 (1.3-6.7) K/mm3 Absolute Nucleated RBC 0.000 (0.0-0.012) K/mm3 Nucleated RBC % 0.0 (0.0-0.2) % Sodium 139 (137-145) mmol/L Potassium 4.0 (3.4-5.0) mmol/L Chloride 100 (98-107) mmol/L Carbon Dioxide 28 (22-30) mmol/L Anion Gap 11 (4-12) mmol/L BUN 21 H D (7-17) mg/dL Creatinine 0.45 L (0.7-1.0) mg/dL Estim Creat Clear Calc 75 ml/min Estimated GFR > 60 (59 - ) Glucose 132 H (65-110) mg/dL Calcium 9.4 (8.4-10.2) mg/dL Magnesium 1.8 (1.6-2.3) mg/dL Total Bilirubin 0.8 (0.2-1.3) mg/dL AST 86 H (14-36) U/L ALT 89 H (6-35) U/L Alkaline Phosphatase 105 (38-126) U/L Total Protein 7.0 (6.3-8.2) g/dL Albumin 4.0 (3.5-5.1) g/dL Influenza A (RT-PCR) Negative (Negative) Influenza B (RT-PCR) Negative (Negative) RSV (RT-PCR) Negative (Negative) SARS-CoV-2 RNA (RT-PCR) Negative (Negative) Discharge Plan Discharge Clinical Impression: Nausea vomiting and diarrhea, Drug abuse, Transaminitis Patient Disposition: Home, Self-Care Condition: Improved Instructions: Antibiotic Form, Acute Nausea and Vomiting (ED), Acute Diarrhea (ED), Transaminitis (ED) Additional Instructions: Please follow-up with your family doctor within the next 3-5 days. Return to the emergency department if any new or worsening symptoms develop. Your liver enzymes were slightly elevated today, you will need to have your blood work rechecked by your primary care physician to monitor your liver enzymes. Patient Language: Syriac Follow-up/Referrals: Romel Mir MD [Physician] - 3 Days UNKNOWN,DOCTOR [Non-Staff] - 3 Days Time of Disposition: 05:12
[2024-04-16 04:34] LABS: Influenza A QL RT-PCR Negative (Negative); Influenza B QL RT-PCR Negative (Negative); RSV RNA, RT-PCR Negative (Negative); SARS-CoV-2 RNA PCR Negative (Negative)
--- NOTE | 2024-04-16 06:36 | PC.NURSE ---
Charge nurse states patient is okay to stay in room calling her ride home until room is needed. Patient informed and verbalized understanding.
== END 2024-04-16 07:15 | disposition home or self-care (01) ==
PROVIDERS: Emergency Provider Emergency Medicine; PCP Internal Medicine
DX: R11.2 Nausea with vomiting, unspecified (principal); R19.7 Diarrhea, unspecified; R74.01 Elevation of levels of liver transaminase levels; F19.10 Other psychoactive substance abuse, uncomplicated; Z20.822 Contact with and (suspected) exposure to COVID-19
CPT/HCPCS: 36415; 80053; 83735; 85025; 87637; 96361; 96374; 99284; J2405; J7030